=== PATIENT | female | born 1955 | race African-American/Black ===

== ENCOUNTER 2017-04-18 13:31 | Inpatient (IN) | payer OTHER ==
[2017-04-18 15:58] VITALS: BMI 14.6
--- NOTE | 2017-04-18 19:44 | HP ---
CIWA Score - CIWA Score Nausea/Vomitin Muscle Tremors: 5 Anxiety: 4-Mod. Anxious/Guarded Agitation: 4-Moderately Restless Paroxysmal Sweats: 1-Minimal Palms Moist Orientation: 1-Uncertain about Date Tacttile Disturbances: 0-None Auditory Disturbances: 0-None Visual Disturbances: 0-None Headache: 1-Very Mild CIWA-Ar Total Score: 18 Admission ROS BHS - HPI Chief Complaint: WITHDRAWAL SX Allergies/Adverse Reactions: Allergies Allergy/AdvReac Type Severity Reaction Status Date / Time Penicillins Allergy Severe Hives Verified 09/19/16 15:43 History of Present Illness: 61 YEARS OLD FEMALE WITH LONG HISTORY OF ALCOHOL NICOTINE DEPENDENCE, HAS GERD, SEIZURE NEUROPATHY COPE AMBULATE WITH CANE, ALLERGIC SEASONAL AND DEPRESSION IS ADMITTED TO DETOX Exam Limitations: No Limitations - Ebola screening Have you traveled outside of the country in the last 21 days: No Have you had contact with anyone from an Ebola affected area: No Have you been sick,other than usual withdrawal symptoms: No Do you have a fever: No - Review of Systems Constitutional: Chills, Loss of Appetite, Changes in sleep, Unintentional Wgt. Loss, Unexplained wgt Loss EENT: reports: Other (EYE GLASSES) Respiratory: reports: SOB with Exertion, Productive cough (WHITISH) Cardiac: reports: No Symptoms Reported GI: reports: Nausea, Poor Appetite, Poor Fluid Intake, Vomiting, Indigestion, Abdominal cramping : reports: No Symptoms Reported Musculoskeletal: reports: Muscle Weakness (LEGS) Integumentary: reports: No Symptoms Reported Neuro: reports: Seizure, Tremors Endocrine: reports: No Symptoms Reported Hematology: reports: No Symptoms Reported Psychiatric: reports: Judgement Intact, Depressed Other Systems: Reviewed and Negative Patient History - Patient Medical History Hx Anemia: Yes (long time ago, no treatment) Hx Asthma: Yes (Pt is on MDI) Hx Chronic Obstructive Pulmonary Disease (COPD): Yes Hx Cancer: No Hx Cardiac Disorders: No Hx Congestive Heart Failure: No Hx Hypertension: No Hx Hypercholesterolemia: No Hx Pacemaker: No HX Cerebrovascular Accident: No Hx Seizures: Yes (etoh related seizures last in 2013) Hx Dementia: No Hx Diabetes: No Hx Gastrointestinal Disorders: Yes (GERD) Hx Liver Disease: No Hx Genitourinary Disorders: No Hx Sexually Transmitted Disorders: No Hx Renal Disease (ESRD): No Hx Thyroid Disease: No Hx Human Immunodeficiency Virus (HIV): No (NEGATIVE HX) Hx Hepatitis C: No Hx Depression: Yes (ZOLOFT) Hx Suicide Attempt: No Hx Bipolar Disorder: No Hx Schizophrenia: No - Patient Surgical History Past Surgical History: Yes Hx Neurologic Surgery: No Hx Cataract Extraction: No Hx Cardiac Surgery: No Hx Lung Surgery: No Hx Breast Surgery: No Hx Breast Biopsy: No Hx Abdominal Surgery: No Hx Appendectomy: Yes (1972) Hx Cholecystectomy: Yes (long time ago) Hx Genitourinary Surgery: No Hx Section: No Hx Orthopedic Surgery: Yes (Right big toe x 2011) Hx Hysterectomy: No Other Surgical History: Gallbladder removed Anesthesia Reaction: No - PPD History Previous Implant?: Yes Documented Results: Negative w/proof Implanted On Prior [facility] Admission?: Yes Date: 09/21/16 Results: 0 mm PPD to be Administered?: No - Reproductive History Patient is a Female of Child Bearing Age (11 -55 yrs old): No Last Menstrual Period: 08/19/00 Patient : No - Smoking Cessation Smoking history: Current every day smoker Have you smoked in the past 12 months: Yes Aproximately how many cigarettes per day: 20 Cigars Per Day: 0 Hx Chewing Tobacco Use: No Initiated information on smoking cessation: Yes 'Breaking Loose' booklet given: 04/18/17 - Substance & Tx. History Hx Alcohol Use: Yes Hx Substance Use: No Substance Use Type: Alcohol Hx Substance Use Treatment: Yes (09/19-09/23/16 [place]) - Substances Abused Alcohol Route: Oral Frequency: Daily Amount used: [id number] Age of first use: 12 Date of Last Use: 04/18/17 Family Disease History - Family Disease History Family Disease History: Diabetes: Father, Sister, [place]: Mother (brain /alzheimers ) Admission Physical Exam S - Vital Signs Vital Signs: Vital Signs - 24 hr 04/18/17 15:55 Temperature 97.1 F L Pulse Rate 98 H Respiratory 16 Rate Blood Pressure 130/70 - Physical General Appearance: Yes: Appropriately Dressed, Moderate Distress, Alcohol on Breath, Thin, Tremorous, Irritable, Sweating, Anxious HEENTM: Yes: Hearing grossly Normal, Normal ENT Inspection, Normocephalic, Normal Voice Respiratory: Yes: Chest Non-Tender, No Respiratory Distress, No Accessory Muscle Use, Hyperresonant, Inspiration Neck: Yes: Supple, Trachea in good position Breast: Yes: Breasts Symetrical Cardiology: Yes: Regular Rhythm, S1, S2, Tachycardia Abdominal: Yes: Non Tender, Soft Genitourinary: Yes: Within Normal Limits Back: Yes: Normal Inspection Musculoskeletal: Yes: Gait Steady (CANE), Muscle weakness (LEGS) Extremities: Yes: Non-Tender, Tremors, Other (WEAKNESS OF BOTH LEGS) Neurological: Yes: Alert, Normal Response, Depressed Affect Integumentary: Yes: Warm Lymphatic: Yes: Within Normal Limits - Diagnostic (1) Alcohol dependence with uncomplicated withdrawal Current Visit: Yes Status: Acute (2) COPD (chronic obstructive pulmonary disease) Current Visit: Yes Status: Chronic Qualifiers: COPD type: chronic bronchitis Chronic bronchitis type: unspecified Qualified Code(s): J42 - Unspecified chronic bronchitis Comment: . (3) GERD (gastroesophageal reflux disease) Current Visit: Yes Status: Chronic Qualifiers: Esophagitis presence: esophagitis presence not specified Qualified Code (s): K21.9 - Gastro-esophageal reflux disease without esophagitis Comment: . (4) Nicotine dependence Current Visit: Yes Status: Acute Qualifiers: Nicotine product type: cigarettes Substance use status: in withdrawal Qualified Code(s): F17.213 - Nicotine dependence, cigarettes, with withdrawal Comment: . (5) Seizures Current Visit: Yes Status: Chronic Qualifiers: Convulsion type: unspecified Qualified Code(s): R56.9 - Unspecified convulsions Comment: . (6) Neuropathic arthritis Current Visit: Yes Status: Chronic (7) Weight loss Current Visit: Yes Status: Acute (8) Depression Current Visit: Yes Status: Suspected Qualifiers: Depression Type: dysthymia Qualified Code(s): F34.1 - Dysthymic disorder (9) Use of cane as ambulatory aid Current Visit: Yes Status: Chronic Cleared for Admission S - Detox or Rehab [facility] Level of Care: Medically Managed Detox Regimen/Protocol: Librium [facility] Breath Alcohol Content Breath Alcohol Content: 0.204 Urine Pregancy Test - Result Urine Test Results: Negative- NO Line Present Urine Drug Screen - Results Drug Screen Negative: Yes
[2017-04-18] MEDS ORDERED: MAG HYDROX/AL HYDROX/SIMETH 30 ML UNIT-DOSE CUP PO PRN (19:58)
[2017-04-18] MEDS ORDERED: hydrOXYzine PAMOATE 50 MG CAPSULE (FP) PO PRN (19:58)
[2017-04-18] MEDS ORDERED: P-EPHED 60MG/TRIPROLIDI 2.5MG TABLET PO PRN (19:58)
[2017-04-18] MEDS ORDERED: LOPERAMIDE HCL 2 MG CAPSULE PO PRN (19:58)
[2017-04-18] MEDS ORDERED: diphenhydrAMINE HCL 50 MG CAPSULE PO PRN (19:58)
[2017-04-18] MEDS ORDERED: MENTHOL/PHENOL 1 EACH UD MM PRN (19:58)
[2017-04-18] MEDS ORDERED: MAGNESIUM CITRATE 300 ML BOTTLE PO PRN (19:58)
[2017-04-18] MEDS ORDERED: NICOTINE POLACRILEX 4 MG GUM BUC PRN (19:58)
[2017-04-18] MEDS ORDERED: ACETAMINOPHEN 325 MG TABLET (FP) PO PRN (19:58)
[2017-04-18] MEDS ORDERED: chlordiazePOXIDE HCL 25 MG CAPSULE PO ONE (19:58)
[2017-04-18] MEDS ORDERED: chlordiazePOXIDE HCL 25 MG CAPSULE PO PRN (19:58)
[2017-04-18] MEDS ORDERED: MAGNESIUM HYDROX 2400MG/30ML ORAL SUSPENSION 30 ML CUP PO PRN (19:58)
[2017-04-18] MEDS ORDERED: ALBUTEROL SO4 6.7 GM HFA INHALER IH PRN (20:00)
[2017-04-18] MEDS ORDERED: ALBUTEROL SO4 2.5/IPRATROPIUM 0.5 INH SOL 3 ML VIAL.NEB. NEB PRN (20:00)
[2017-04-18] MEDS: levETIRAcetam 500 MG TABLET (FP) PO SCH (21:28)
[2017-04-18] MEDS: GABAPENTIN 100 MG CAPSULE (FP) PO SCH (21:28)
[2017-04-18] MEDS: THIAMINE HCL 100 MG TABLET (FP) PO SCH (21:29)
[2017-04-18] MEDS: BUDESONIDE/FORMETEROL FUMARATE 80/4.5 mcg INHALER IH SCH (21:29)
[2017-04-18] MEDS ORDERED: MONTELUKAST NA 5 MG TAB.CHEW PO SCH (22:00)
[2017-04-18] MEDS: chlordiazePOXIDE HCL 25 MG CAPSULE PO SCH (22:25)
[2017-04-18 23:55] LABS: URINE APPEARANCE CLEAR; URINE BILIRUBIN NEGATIVE (NEGATIVE); URINE BLOOD NEGATIVE (NEGATIVE); URINE COLOR STRAW; URINE GLUCOSE (UA) NEGATIVE (NEGATIVE); URINE KETONE NEGATIVE (NEGATIVE); URINE LEUK ESTERASE NEGATIVE (NEGATIVE); URINE NITRITE NEGATIVE (NEGATIVE); URINE PROTEIN NEGATIVE (NEGATIVE); URINE UROBILINOGEN NEGATIVE E.U./dl (0.2-1.0)
[2017-04-19] MEDS: chlordiazePOXIDE HCL 25 MG CAPSULE PO SCH ×4 (06:45→22:57)
[2017-04-19] MEDS: GABAPENTIN 100 MG CAPSULE (FP) PO SCH ×3 (06:46→22:58)
[2017-04-19] MEDS: guaiFENesin/D-METHORPHAN HB 10 ML UNIT-DOSE CUPS PO PRN (06:50)
--- NOTE | 2017-04-19 09:58 | EKG ---
Test Reason : Blood Pressure : / mmHG Vent. Rate : 091 BPM Atrial Rate : 091 BPM P-R Int : 170 ms QRS Dur : 090 ms QT Int : 388 ms P-R-T Axes : 072 058 073 degrees QTc Int : 477 ms NORMAL SINUS RHYTHM POSSIBLE LEFT ATRIAL ENLARGEMENT SEPTAL INFARCT , AGE UNDETERMINED ABNORMAL ECG NO PREVIOUS ECGS AVAILABLE Confirmed by AMAYA RAM MD ([id number]) on 04/19/2017 9:58:25 AM Referred By: Michael Hawkins Confirmed By:AMAYA RAM MD
[2017-04-19 10:21] LABS: MCH 31.6 pg (25.7-33.7); MCHC 33.9 g/dl (32.0-36.0); MEAN CELL VOLUME 93.3 fl (80-96); MEAN PLT VOLUME 9.3 fl (7.5-11.1); PLATELET COUNT 197 K/MM3 (134-434); RDW 13.4 % (11.6-15.6); WHITE BLOOD COUNT 4.5 K/mm3 (4.0-10.0)
[2017-04-19 10:44] LABS: ALBUMIN 4.2 g/dl (3.4-5.0); ANION GAP 17 (8-16); CALCIUM 9.2 mg/dL (8.5-10.1); CO2 22 mmol/L (21-32); CREATININE 0.6 mg/dL (0.55-1.02); GLUCOSE,RANDOM 86 mg/dL (74-106); SGOT/AST 108 U/L (15-37); SGPT/ALT 45 U/L (12-78)
[2017-04-19 10:46] LABS: ALK PHOS 88 U/L (45-117); BILIRUBIN,TOTAL 0.4 mg/dL (0.2-1.0); TOT PROT 8.5 g/dl (6.4-8.2)
[2017-04-19] MEDS: BUDESONIDE/FORMETEROL FUMARATE 80/4.5 mcg INHALER IH SCH ×2 (10:51→22:58)
[2017-04-19] MEDS: PANTOPRAZOLE 20 MG TABLET (FP) PO SCH (10:51)
[2017-04-19] MEDS: PRENATAL VITAMINS W/ FOLIC ACID TABLET (FP) PO SCH (10:52)
[2017-04-19] MEDS: levETIRAcetam 500 MG TABLET (FP) PO SCH ×2 (10:52→22:57)
[2017-04-19] MEDS: NICOTINE 21 MG/24 HOURS TOPICAL PATCH TD SCH (10:53)
[2017-04-19] MEDS ORDERED: POTASSIUM CHLORIDE TABS 20 MEQ TABLET.ER (FP) PO ONE (15:40)
--- NOTE | 2017-04-19 15:47 | PN ---
S CIWA - CIWA Score Nausea/Vomitin-No Nausea/No Vomiting Muscle Tremors: 4-Moderate,w/Arms Extend Anxiety: 4-Mod. Anxious/Guarded Agitation: 4-Moderately Restless Paroxysmal Sweats: 3 Orientation: 0-Oriented Tacttile Disturbances: 0-None Auditory Disturbances: 0-None Visual Disturbances: 0-None Headache: 0-None Present CIWA-Ar Total Score: 15 BHS Progress Note (SOAP) Subjective: Anxiety,tremors,sweating,interrupted sleep,restless. Objective: 04/19/17 15:46 Vital Signs - 8 hr 04/19/17 04/19/17 10:00 15:26 Temperature 97.9 F 97.9 F Pulse Rate 90 96 H Respiratory 20 18 Rate Blood Pressure 129/73 134/77 Laboratory Tests 04/18/17 04/19/17 04/19/17 21:16 08:00 08:00 WBC 4.5 RBC 3.99 Hgb 12.6 Hct 37.2 MCV 93.3 MCHC 33.9 RDW 13.4 Plt Count 197 D MPV 9.3 Sodium 133 L Potassium 3.3 L Chloride 94 L Carbon Dioxide 22 Anion Gap 17 H BUN 4 L D Creatinine 0.6 Creat Clearance w eGFR > 60 Random Glucose 86 Calcium 9.2 Total Bilirubin 0.4 D AST 108 H ALT 45 D Alkaline Phosphatase 88 Total Protein 8.5 H Albumin 4.2 Urine Color Straw Urine Appearance Clear Urine pH 5.0 Ur Specific [place] < 1.005 L Urine Protein Negative Urine Glucose (UA) Negative Urine Ketones Negative Urine Blood Negative Urine Nitrite Negative Urine Bilirubin Negative Urine Urobilinogen Negative Ur Leukocyte Esterase Negative labs noted,K+ 3.3,k-dur ordered Assessment: 04/19/17 15:47 Withdrawal sx. Plan: Continue detox
--- NOTE | 2017-04-19 15:58 | CONSULT ---
[facility] Psychiatric Consult - Data Date of interview: 04/19/17 Admission source: [facility] Identifying data: Readmission to [facility] for this 61 y/o AA female seeking detox treatment for alcohol dependence.Patient is a ,mother of two, domiciled,unemployed and supported on SSI and 's benefits.. Substance Abuse History: - Smoking Cessation. Smoking history: Current every day smoker. Have you smoked in the past 12 months: Yes. Aproximately how many cigarettes per day: 20. Cigars Per Day: 0. Hx Chewing Tobacco Use: No. Initiated information on smoking cessation: Yes. 'Breaking Loose' booklet given : 04/18/17. - Substance & Tx. History. Hx Alcohol Use: Yes. Hx Substance Use : No. Substance Use Type: Alcohol. Hx Substance Use Treatment: Yes (09/19- [place]). - Substances Abused. Alcohol. Route: Oral. Frequency: Daily. Amount used: [id number]. Age of first use: 12. Date of Last Use: 04/18. Confirmed by patient. Medical History: Significant for weight loss,anemia,COPD,bronchial asthma, spinal stenosis,low back pain,GERD,seizure disorder (on keppra) and a history of cholecystectomy.Noted history of orthosurgery for fracture of right big toe. Psychiatric History: Patient denies history of psychiatric hospitalizations.No OPD care.Ms Crystal is currently prescribed zoloft 25 mg/day by her primary care doctor (started this month).Patient admits to experiencing periods of dyphoric/ depressed mood but she denies suicidal ideation.No history of suicide attempts.Reported decent sleep. Physical/Sexual Abuse/Trauma History: Patient denies history of abuse. Additional Comment: Drug Screen is negative. Mental Status Exam - Mental Status Exam Alert and Oriented to: Time, Place, Person Cognitive Function: Good Patient Appearance: Well Groomed (thin,frail habitus,short stature) Mood: Sad, Withdrawn Affect: Constricted Patient Behavior: Fatigued, Cooperative Speech Pattern: Clear Voice Loudness: Moderately Soft/Quiet Thought Process: Intact, Goal Oriented Thought Disorder: Not Present Hallucinations: Denies Suicidal Ideation: Denies Homicidal Ideation: Denies Insight/Judgement: Poor Sleep: Poorly, Difficulty falling asleep Appetite: Weight loss Muscle strength/Tone: Normal Gait/Station: Other (walks with a cane) Psychiatric Findings - Problem List ([place] 1, 2,3) (1) Alcohol dependence with uncomplicated withdrawal Current Visit: Yes Status: Acute (2) Nicotine dependence Current Visit: Yes Status: Acute Qualifiers: Nicotine product type: cigarettes Substance use status: in withdrawal Qualified Code(s): F17.213 - Nicotine dependence, cigarettes, with withdrawal Comment: . (3) Depressive disorder Current Visit: Yes Status: Chronic (4) Weight loss Current Visit: Yes Status: Chronic (5) COPD (chronic obstructive pulmonary disease) Current Visit: Yes Status: Chronic Qualifiers: COPD type: chronic bronchitis Chronic bronchitis type: unspecified Qualified Code(s): J42 - Unspecified chronic bronchitis Comment: . (6) GERD (gastroesophageal reflux disease) Current Visit: Yes Status: Chronic Qualifiers: Esophagitis presence: esophagitis presence not specified Qualified Code(s): K21.9 - Gastro-esophageal reflux disease without esophagitis Comment: . (7) Neuropathic arthritis Current Visit: Yes Status: Chronic (8) Seizures Current Visit: Yes Status: Chronic Qualifiers: Convulsion type: unspecified Qualified Code(s): R56.9 - Unspecified convulsions Comment: . (9) Anemia Current Visit: Yes Status: Chronic Comment: . (10) Asthma Current Visit: No Status: Chronic Qualifiers: Asthma severity: mild intermittent Asthma complication type: with status asthmaticus Qualified Code(s): J45.22 - Mild intermittent asthma with status asthmaticus Comment: . (11) Cachexia Current Visit: No Status: Chronic - Initial Treatment Plan Initial Treatment Plan: Psychoeducation.Detoxification.Zoloft 25 mg po daily.Side effects/benefits discussed with the patient.She agrees with this careplan.Observation.NO scripts at discharge (issued on 04/06/17 at [facility]).
[2017-04-19] MEDS: POTASSIUM CHLORIDE TABS 20 MEQ TABLET.ER (FP) PO SCH (22:57)
[2017-04-19] MEDS: THIAMINE HCL 100 MG TABLET (FP) PO SCH (22:58)
[2017-04-19] MEDS: MONTELUKAST NA 10 MG TABLET PO SCH (22:58)
[2017-04-20] MEDS: chlordiazePOXIDE HCL 25 MG CAPSULE PO SCH ×3 (06:36→17:29)
[2017-04-20] MEDS: GABAPENTIN 100 MG CAPSULE (FP) PO SCH ×3 (06:36→22:46)
--- NOTE | 2017-04-20 10:21 | PN ---
[facility] CIWA - CIWA Score Nausea/Vomitin-Mild Nausea/No Vomiting Muscle Tremors: 5 Anxiety: 4-Mod. Anxious/Guarded Agitation: 4-Moderately Restless Paroxysmal Sweats: 3 Orientation: 0-Oriented Tacttile Disturbances: 1-Very Mild Itch/Numbness Auditory Disturbances: 0-None Visual Disturbances: 0-None Headache: 0-None Present CIWA-Ar Total Score: 18 BHS Progress Note (SOAP) Subjective: Anxiety,tremors,sweating,interrupted sleep,restless Objective: 04/20/17 10:18 Vital Signs - 8 hr 04/20/17 04/20/17 03:30 06:52 Temperature 97.9 F Pulse Rate 83 Respiratory 18 18 Rate Blood Pressure 141/86 Laboratory Last Values WBC 4.5 K/mm3 (4.0-10.0) 04/19/17 08:00 RBC 3.99 M/mm3 (3.60-5.2) 04/19/17 08:00 Hgb 12.6 GM/dL (10.7-15.3) 04/19/17 08:00 Hct 37.2 % (32.4-45.2) 04/19/17 08:00 MCV 93.3 fl (80-96) 04/19/17 08:00 MCHC 33.9 g/dl (32.0-36.0) 04/19/17 08:00 RDW 13.4 % (11.6-15.6) 04/19/17 08:00 Plt Count 197 K/MM3 (134-434) D 04/19/17 08:00 MPV 9.3 fl (7.5-11.1) 04/19/17 08:00 Sodium 133 mmol/L (136-145) L 04/19/17 08:00 Potassium 3.3 mmol/L (3.5-5.1) L 04/19/17 08:00 Chloride 94 mmol/L (98-107) L 04/19/17 08:00 Carbon Dioxide 22 mmol/L (21-32) 04/19/17 08:00 Anion Gap 17 (8-16) H 04/19/17 08:00 BUN 4 mg/dL (7-18) L D 04/19/17 08:00 Creatinine 0.6 mg/dL (0.55-1.02) 04/19/17 08:00 Creat Clearance w eGFR > 60 (>60) 04/19/17 08:00 Random Glucose 86 mg/dL (74-106) 04/19/17 08:00 Calcium 9.2 mg/dL (8.5-10.1) 04/19/17 08:00 Total Bilirubin 0.4 mg/dL (0.2-1.0) D 04/19/17 08:00 AST 108 U/L (15-37) H 04/19/17 08:00 ALT 45 U/L (12-78) D 04/19/17 08:00 Alkaline Phosphatase 88 U/L (45-117) 04/19/17 08:00 Total Protein 8.5 g/dl (6.4-8.2) H 04/19/17 08:00 Albumin 4.2 g/dl (3.4-5.0) 04/19/17 08:00 Urine Color Straw 04/18/17 21:16 Urine Appearance Clear 04/18/17 21:16 Urine pH 5.0 (5.0-8.0) 04/18/17 21:16 Ur Specific [place] < 1.005 (1.005-1.025) L 04/18/17 21:16 Urine Protein Negative (NEGATIVE) 04/18/17 21:16 Urine Glucose (UA) Negative (NEGATIVE) 04/18/17 21:16 Urine Ketones Negative (NEGATIVE) 04/18/17 21:16 Urine Blood Negative (NEGATIVE) 04/18/17 21:16 Urine Nitrite Negative (NEGATIVE) 04/18/17 21:16 Urine Bilirubin Negative (NEGATIVE) 04/18/17 21:16 Urine Urobilinogen Negative E.U./dl (0.2-1.0) 04/18/17 21:16 Ur Leukocyte Esterase Negative (NEGATIVE) 04/18/17 21:16 labs noted Assessment: 04/20/17 10:21 Withdrawal sx. Plan: continue detox
[2017-04-20] MEDS: PANTOPRAZOLE 20 MG TABLET (FP) PO SCH (10:39)
[2017-04-20] MEDS: NICOTINE 21 MG/24 HOURS TOPICAL PATCH TD SCH (10:39)
[2017-04-20] MEDS: levETIRAcetam 500 MG TABLET (FP) PO SCH ×2 (10:39→22:45)
[2017-04-20] MEDS: PRENATAL VITAMINS W/ FOLIC ACID TABLET (FP) PO SCH (10:39)
[2017-04-20] MEDS: POTASSIUM CHLORIDE TABS 20 MEQ TABLET.ER (FP) PO SCH ×2 (10:39→22:46)
[2017-04-20] MEDS: BUDESONIDE/FORMETEROL FUMARATE 80/4.5 mcg INHALER IH SCH ×2 (10:40→23:07)
[2017-04-20] MEDS: THIAMINE HCL 100 MG TABLET (FP) PO SCH (22:45)
[2017-04-20] MEDS: MONTELUKAST NA 10 MG TABLET PO SCH (22:46)
[2017-04-20] MEDS: chlordiazePOXIDE 5 MG CAPSULE PO SCH (22:47)
[2017-04-20] MEDS: guaiFENesin/D-METHORPHAN HB 10 ML UNIT-DOSE CUPS PO PRN (23:16)
[2017-04-21] MEDS: guaiFENesin/D-METHORPHAN HB 10 ML UNIT-DOSE CUPS PO PRN (05:31)
[2017-04-21] MEDS: chlordiazePOXIDE 5 MG CAPSULE PO SCH ×3 (05:33→17:33)
[2017-04-21] MEDS: GABAPENTIN 100 MG CAPSULE (FP) PO SCH ×3 (07:45→22:43)
[2017-04-21] MEDS: levETIRAcetam 500 MG TABLET (FP) PO SCH ×2 (10:42→22:42)
[2017-04-21] MEDS: PRENATAL VITAMINS W/ FOLIC ACID TABLET (FP) PO SCH (10:42)
[2017-04-21] MEDS: POTASSIUM CHLORIDE TABS 20 MEQ TABLET.ER (FP) PO SCH ×2 (10:42→22:42)
[2017-04-21] MEDS: PANTOPRAZOLE 20 MG TABLET (FP) PO SCH (10:42)
[2017-04-21] MEDS: NICOTINE 21 MG/24 HOURS TOPICAL PATCH TD SCH (10:43)
[2017-04-21] MEDS: BUDESONIDE/FORMETEROL FUMARATE 80/4.5 mcg INHALER IH SCH ×2 (10:43→22:43)
--- NOTE | 2017-04-21 11:07 | PN ---
BHS Progress Note (SOAP) Subjective: interrupted sleep, sweats, shakes Objective: 04/21/17 11:04 Last Vital Signs Temp Pulse Resp BP Pulse Ox 98.2 F 85 16 114/60 04/21/17 06:00 04/21/17 06:00 04/21/17 06:00 04/21/17 06:00 Laboratory Tests 04/18/17 04/19/17 04/19/17 21:16 08:00 08:00 WBC 4.5 RBC 3.99 Hgb 12.6 Hct 37.2 MCV 93.3 MCHC 33.9 RDW 13.4 Plt Count 197 D MPV 9.3 Sodium 133 L Potassium 3.3 L Chloride 94 L Carbon Dioxide 22 Anion Gap 17 H BUN 4 L D Creatinine 0.6 Creat Clearance w eGFR > 60 Random Glucose 86 Calcium 9.2 Total Bilirubin 0.4 D AST 108 H ALT 45 D Alkaline Phosphatase 88 Total Protein 8.5 H Albumin 4.2 Urine Color Straw Urine Appearance Clear Urine pH 5.0 Ur Specific [place] < 1.005 L Urine Protein Negative Urine Glucose (UA) Negative Urine Ketones Negative Urine Blood Negative Urine Nitrite Negative Urine Bilirubin Negative Urine Urobilinogen Negative Ur Leukocyte Esterase Negative RPR Titer 04/19/17 08:00 WBC RBC Hgb Hct MCV MCHC RDW Plt Count MPV Sodium Potassium Chloride Carbon Dioxide Anion Gap BUN Creatinine Creat Clearance w eGFR Random Glucose Calcium Total Bilirubin AST ALT Alkaline Phosphatase Total Protein Albumin Urine Color Urine Appearance Urine pH Ur Specific [place] Urine Protein Urine Glucose (UA) Urine Ketones Urine Blood Urine Nitrite Urine Bilirubin Urine Urobilinogen Ur Leukocyte Esterase RPR Titer Nonreactive pt aox3 in nad ambualting not using cane at present , very thin Assessment: 04/21/17 11:05 withdrawal sx;s elevated transaminases hypokalemia 04/21/17 11:06 Plan: cont. detox increase fluids ensure tid d/c in am
[2017-04-21] MEDS: chlordiazePOXIDE HCL 10 MG CAPSULE PO SCH (22:43)
[2017-04-21] MEDS: MONTELUKAST NA 10 MG TABLET PO SCH (22:43)
[2017-04-21] MEDS: THIAMINE HCL 100 MG TABLET (FP) PO SCH (22:44)
[2017-04-22] MEDS: chlordiazePOXIDE HCL 10 MG CAPSULE PO SCH ×2 (06:01→10:36)
[2017-04-22] MEDS: GABAPENTIN 100 MG CAPSULE (FP) PO SCH (07:00)
--- NOTE | 2017-04-22 09:03 | DS ---
[facility] Detox Discharge Summary Admission Date: 04/18/17 Discharge Date: 04/22/17 - History Present History: Alcohol Dependence - Physical Exam Results Vital Signs: Vital Signs Temperature 97.5 F L 04/22/17 06:30 Pulse Rate 89 04/22/17 06:30 Respiratory Rate 16 04/22/17 06:30 Blood Pressure 116/73 04/22/17 06:30 O2 Sat by Pulse Oximetry (%) - Treatment Hospital Course: Detox Protocol Followed, Detoxed Safely, Responded well, Discharged Condition Good - Medication Discharge Medications: Ambulatory Orders Multivitamins [Multivit ([facility] Formulary)] 1 tab PO DAILY 02/22/15 Albuterol Sulfate Inhaler - [Ventolin HFA Inhaler -] 2 inh PO Q4H PRN #1 canister 12/29/15 Budesonide/Formeterol Fumarate [SYMBICORT 80/4.5mcg -] 1 inh PO BID #1 canister 12/29/15 Folic Acid - 1 mg PO DAILY #30 tablet 12/29/15 Montelukast Na [Singulair -] 10 mg PO HS #30 tablet 12/29/15 Thiamine HCl [Vitamin B1 -] 100 mg PO HS #30 tablet 12/29/15 Levetiracetam [Keppra -] 750 mg PO DAILY 09/19/16 Omeprazole 20 mg PO DAILY 09/19/16 Albuterol Sulfate Inhaler - [Ventolin HFA Inhaler -] 2 puff IH Q4H PRN #1 inhaler 04/22/17 Budesonide/Formeterol Fumarate [SYMBICORT 80/4.5mcg -] 2 puff IH BID #1 inhaler 04/22/17 Gabapentin [Neurontin -] 200 mg PO TID #90 mg 04/22/17 Levetiracetam [Keppra -] 1,000 mg PO BID #60 tablet 04/22/17 Montelukast Na [Singulair -] 10 mg PO HS #30 tablet 04/22/17 Pantoprazole Sodium [Protonix -] 40 mg PO DAILY #30 mg 04/22/17 - Diagnosis (1) Alcohol dependence with uncomplicated withdrawal Current Visit: Yes Status: Chronic (2) Nicotine dependence Current Visit: Yes Status: Chronic Qualifiers: Nicotine product type: cigarettes Substance use status: in withdrawal Qualified Code(s): F17.213 - Nicotine dependence, cigarettes, with withdrawal (3) Anemia Current Visit: Yes Status: Chronic (4) COPD (chronic obstructive pulmonary disease) Current Visit: Yes Status: Chronic Qualifiers: COPD type: chronic bronchitis Chronic bronchitis type: unspecified Qualified Code(s): J42 - Unspecified chronic bronchitis (5) Depressive disorder Current Visit: Yes Status: Chronic (6) GERD (gastroesophageal reflux disease) Current Visit: Yes Status: Chronic Qualifiers: Esophagitis presence: esophagitis presence not specified Qualified Code(s): K21.9 - Gastro-esophageal reflux disease without esophagitis (7) Neuropathic arthritis Current Visit: Yes Status: Acute - AMA Did Patient Leave Against Medical Advice: No
[2017-04-22 09:39] VITALS: BP 128/80; PULSE 91; TEMP 97.9
[2017-04-22] MEDS ORDERED: PANTOPRAZOLE 40 MG TABLET (FP) PO SCH (10:00)
[2017-04-22] MEDS: NICOTINE 21 MG/24 HOURS TOPICAL PATCH TD SCH (10:36)
[2017-04-22] MEDS: POTASSIUM CHLORIDE TABS 20 MEQ TABLET.ER (FP) PO SCH (10:36)
[2017-04-22] MEDS: PRENATAL VITAMINS W/ FOLIC ACID TABLET (FP) PO SCH (10:36)
[2017-04-22] MEDS: levETIRAcetam 500 MG TABLET (FP) PO SCH (10:36)
[2017-04-22] MEDS: BUDESONIDE/FORMETEROL FUMARATE 80/4.5 mcg INHALER IH SCH (10:37)
== END 2017-04-22 12:15 | disposition other institution (70) | DRG 897 ==
LOC: YASAS 13:31 → UNDOADMIN 20:49 → Y6N 20:49 → UNDODISIN 04-22 12:15
PROVIDERS: ADMIT Internal Medicine; ATTEND Internal Medicine
PROC: HZ2ZZZZ Detoxification Services for Substance Abuse Treatment (ICD-10-PCS; principal; 2017-04-18)
DX: F10.230 Alcohol dependence with withdrawal, uncomplicated (principal); J45.22 Mild intermittent asthma with status asthmaticus; R64 Cachexia; F17.210 Nicotine dependence, cigarettes, uncomplicated; F32.9 Major depressive disorder, single episode, unspecified; J42 Unspecified chronic bronchitis; K21.9 Gastro-esophageal reflux disease without esophagitis; R00.0 Tachycardia, unspecified; M14.60 Charcot's joint, unspecified site; R74.0 Nonspecific elevation of levels of transaminase and lactic acid dehydrogenase [LDH]; E87.6 Hypokalemia; G40.909 Epilepsy, unspecified, not intractable, without status epilepticus; Z87.898 Personal history of other specified conditions; Z90.49 Acquired absence of other specified parts of digestive tract; R26.2 Difficulty in walking, not elsewhere classified; Z99.89 Dependence on other enabling machines and devices
CPT/HCPCS: 36415; 80053; 81003; 85027; 86593; 93005; 93010

== ENCOUNTER 2017-04-22 12:34 | Inpatient (IN) | payer OTHER ==
[2017-04-22] MEDS ORDERED: NICOTINE POLACRILEX 2 MG GUM BUC PRN (15:10)
[2017-04-22] MEDS ORDERED: MENTHOL/PHENOL 1 EACH UD MM PRN (15:10)
[2017-04-22] MEDS ORDERED: P-EPHED 60MG/TRIPROLIDI 2.5MG TABLET PO PRN (15:10)
[2017-04-22] MEDS ORDERED: MAGNESIUM CITRATE 300 ML BOTTLE PO PRN (15:10)
[2017-04-22] MEDS ORDERED: LOPERAMIDE HCL 2 MG CAPSULE PO PRN (15:10)
[2017-04-22] MEDS ORDERED: MAGNESIUM HYDROX 2400MG/30ML ORAL SUSPENSION 30 ML CUP PO PRN (15:10)
--- NOTE | 2017-04-22 15:12 | HP ---
RENAE SMITH Rehab Assess/Revision - Admission History Admitted to Rehab from: [facility] [place] Date of Admission to Rehab: 04/22/17 - Vital signs Vital Signs: Vital Signs Period Temp Pulse Resp BP Sys/Ackerman Pulse Ox Last 24 Hr 97.8 F 84 16 146/80 - Findings Detox History & Physical reviewed: Yes Concur with findings: Yes
[2017-04-22] MEDS ORDERED: ALBUTEROL SO4 6.7 GM HFA INHALER IH PRN (15:25)
[2017-04-22] MEDS ORDERED: ALBUTEROL SO4 2.5/IPRATROPIUM 0.5 INH SOL 3 ML VIAL.NEB. NEB PRN (15:25)
[2017-04-22] MEDS: MAG HYDROX/AL HYDROX/SIMETH 30 ML UNIT-DOSE CUP PO PRN (16:50)
[2017-04-22] MEDS: BUDESONIDE/FORMETEROL FUMARATE 80/4.5 mcg INHALER IH SCH (21:35)
[2017-04-22] MEDS: levETIRAcetam 500 MG TABLET (FP) PO SCH (21:35)
[2017-04-22] MEDS: THIAMINE HCL 100 MG TABLET (FP) PO SCH (21:36)
[2017-04-22] MEDS: diphenhydrAMINE HCL 50 MG CAPSULE PO PRN (21:36)
[2017-04-22] MEDS: MONTELUKAST NA 10 MG TABLET PO SCH (21:36)
[2017-04-23] MEDS: levETIRAcetam 500 MG TABLET (FP) PO SCH ×2 (09:34→21:12)
[2017-04-23] MEDS: PANTOPRAZOLE 40 MG TABLET (FP) PO SCH (09:34)
[2017-04-23] MEDS: NICOTINE 14 MG/24 HOURS TOPICAL PATCH TD SCH (09:34)
[2017-04-23] MEDS: PRENATAL VITAMINS W/ FOLIC ACID TABLET (FP) PO SCH (09:34)
[2017-04-23] MEDS ORDERED: PT OWN MED DRAWER 7, Y5N ONE (09:35)
[2017-04-23] MEDS: BUDESONIDE/FORMETEROL FUMARATE 80/4.5 mcg INHALER IH SCH ×2 (09:36→21:13)
[2017-04-23] MEDS: guaiFENesin/D-METHORPHAN HB 10 ML UNIT-DOSE CUPS PO PRN (09:36)
--- NOTE | 2017-04-23 09:53 | HP ---
Psychiatrist Admission - Data Date of interview: 04/23/17 Admission source: [address] [place] [address] Identifying data: This is the second admission to [facility] for this 61 years old AA mother of 2,domiciled,supported by [facility]. Medical History: Significant for Anemia,BA,COPD,Seizure disorder,Cahexia. Psychiatric History: Patient denies history of psychiatric hospitalizations, reports periods of dysphoric,depressed mood.No history of suicidality.No psychiatric follow up,care.According to the patient her Family Doctor prescribes Zoloft 25 mg po daily.Patient is willing to continue Zoloft 25 mg po daily at this time. Physical/Sexual Abuse/Trauma History: denies Vital Signs: Vital Signs - 24 hr 04/22/17 04/23/17 04/23/17 12:55 01:21 03:30 Temperature 97.8 F Pulse Rate 84 Respiratory 16 18 18 Rate Blood Pressure 146/80 04/23/17 07:08 Temperature 98.0 F Pulse Rate 89 Respiratory 18 Rate Blood Pressure 127/80 Allergies/Adverse Reactions: Allergies Allergy/AdvReac Type Severity Reaction Status Date / Time Penicillins Allergy Severe Hives Verified 04/18/17 20:54 Date of last physical exam: 04/18/17 Concur with the findings of this exam: Yes - Substance Abuse/Tx History Hx Alcohol Use: Yes (reports drinking since 12 yo,4-5 22 oz of beer) Hx Substance Use: No Substance Use Type: Alcohol Hx Substance Use Treatment: Yes (completed this program in 2014) - Admission Criteria Previous failed treatment: Yes Poor recovery environment: Yes Comorbidities: Yes Lacks judgement: Yes Mental Status Exam - Mental Status Exam Alert and Oriented to: Time, Place, Person Cognitive Function: Grossly Intact Patient Appearance: Well Groomed Mood: Sad Affect: Mood Congruent, Labile Patient Behavior: Cooperative Speech Pattern: Clear Voice Loudness: Normal Thought Process: Goal Oriented Thought Disorder: Not Present Hallucinations: Denies Suicidal Ideation: Denies Homicidal Ideation: Denies Insight/Judgement: Fair Sleep: Fair Appetite: Fair, Weight loss Muscle strength/Tone: Normal Gait/Station: Normal Psychiatric Findings - Problem List ([place] 1, 2,3) (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 (5) Asthma Current Visit: Yes Status: Chronic Qualifiers: Comment: . (6) COPD (chronic obstructive pulmonary disease) Current Visit: Yes Status: Chronic Comment: . (7) Cachexia Current Visit: Yes Status: Chronic - Initial Treatment Plan Initial Treatment Plan: Continue Zoloft 25 mg po daily.Will monitor progress.
[2017-04-23] MEDS: SERTRALINE HCL 25 MG TABLET (FP) PO SCH (14:49)
[2017-04-23] MEDS: THIAMINE HCL 100 MG TABLET (FP) PO SCH (21:12)
[2017-04-23] MEDS: MONTELUKAST NA 10 MG TABLET PO SCH (21:12)
[2017-04-24] MEDS: NICOTINE 14 MG/24 HOURS TOPICAL PATCH TD SCH (09:51)
[2017-04-24] MEDS: levETIRAcetam 500 MG TABLET (FP) PO SCH ×2 (09:51→21:11)
[2017-04-24] MEDS: PRENATAL VITAMINS W/ FOLIC ACID TABLET (FP) PO SCH (09:51)
[2017-04-24] MEDS: PANTOPRAZOLE 40 MG TABLET (FP) PO SCH (09:51)
[2017-04-24] MEDS: SERTRALINE HCL 25 MG TABLET (FP) PO SCH (09:52)
[2017-04-24] MEDS: BUDESONIDE/FORMETEROL FUMARATE 80/4.5 mcg INHALER IH SCH ×2 (09:53→21:12)
[2017-04-24] MEDS: THIAMINE HCL 100 MG TABLET (FP) PO SCH (21:11)
[2017-04-24] MEDS: MONTELUKAST NA 10 MG TABLET PO SCH (21:11)
[2017-04-25] MEDS: BUDESONIDE/FORMETEROL FUMARATE 80/4.5 mcg INHALER IH SCH ×2 (09:59→21:26)
[2017-04-25] MEDS: PANTOPRAZOLE 40 MG TABLET (FP) PO SCH (10:00)
[2017-04-25] MEDS: PRENATAL VITAMINS W/ FOLIC ACID TABLET (FP) PO SCH (10:00)
[2017-04-25] MEDS: levETIRAcetam 500 MG TABLET (FP) PO SCH ×2 (10:00→21:27)
[2017-04-25] MEDS: NICOTINE 14 MG/24 HOURS TOPICAL PATCH TD SCH (10:00)
[2017-04-25] MEDS: SERTRALINE HCL 25 MG TABLET (FP) PO SCH (10:00)
[2017-04-25] MEDS ORDERED: PT OWN MED DRAWER 7, Y5N ONE (19:20)
[2017-04-25] MEDS: MONTELUKAST NA 10 MG TABLET PO SCH (21:27)
[2017-04-25] MEDS: diphenhydrAMINE HCL 50 MG CAPSULE PO PRN (21:28)
[2017-04-25] MEDS: guaiFENesin/D-METHORPHAN HB 10 ML UNIT-DOSE CUPS PO PRN (21:29)
[2017-04-25] MEDS: THIAMINE HCL 100 MG TABLET (FP) PO SCH (21:34)
[2017-04-26] MEDS ORDERED: PT OWN MED DRAWER 7, Y5N ONE ×3 (09:18→22:22)
[2017-04-26] MEDS: PRENATAL VITAMINS W/ FOLIC ACID TABLET (FP) PO SCH (09:35)
[2017-04-26] MEDS: PANTOPRAZOLE 40 MG TABLET (FP) PO SCH (09:35)
[2017-04-26] MEDS: BUDESONIDE/FORMETEROL FUMARATE 80/4.5 mcg INHALER IH SCH ×2 (09:36→21:16)
[2017-04-26] MEDS: NICOTINE 14 MG/24 HOURS TOPICAL PATCH TD SCH (09:36)
[2017-04-26] MEDS: SERTRALINE HCL 25 MG TABLET (FP) PO SCH (09:36)
--- NOTE | 2017-04-26 10:01 | PN ---
S Progress Note Note: KEPPRA LEVEL IS 45.5,CHANGE KEPPRA TO 500 MGS PO BID,REPAET KEPPRA LEVEL ON Fri04/28/17
[2017-04-26] MEDS: levETIRAcetam 500 MG TABLET (FP) PO SCH ×2 (10:51→21:15)
[2017-04-26] MEDS: MONTELUKAST NA 10 MG TABLET PO SCH (21:15)
[2017-04-26] MEDS: diphenhydrAMINE HCL 50 MG CAPSULE PO PRN (21:15)
[2017-04-26] MEDS: THIAMINE HCL 100 MG TABLET (FP) PO SCH (21:17)
[2017-04-26] MEDS: guaiFENesin/D-METHORPHAN HB 10 ML UNIT-DOSE CUPS PO PRN (21:17)
[2017-04-27] MEDS ORDERED: PT OWN MED DRAWER 7, Y5N ONE ×2 (08:37→12:53)
[2017-04-27] MEDS: PRENATAL VITAMINS W/ FOLIC ACID TABLET (FP) PO SCH (09:39)
[2017-04-27] MEDS: PANTOPRAZOLE 40 MG TABLET (FP) PO SCH (09:39)
[2017-04-27] MEDS: SERTRALINE HCL 25 MG TABLET (FP) PO SCH (09:39)
[2017-04-27] MEDS: levETIRAcetam 500 MG TABLET (FP) PO SCH ×2 (09:39→21:15)
[2017-04-27] MEDS: NICOTINE 14 MG/24 HOURS TOPICAL PATCH TD SCH (09:40)
[2017-04-27] MEDS: BUDESONIDE/FORMETEROL FUMARATE 80/4.5 mcg INHALER IH SCH ×2 (09:40→21:16)
[2017-04-27] MEDS ORDERED: ALBUTEROL SO4 2.5/IPRATROPIUM 0.5 INH SOL 3 ML VIAL.NEB. NEB PRN (09:41)
[2017-04-27] MEDS: MONTELUKAST NA 10 MG TABLET PO SCH (21:15)
[2017-04-27] MEDS: diphenhydrAMINE HCL 50 MG CAPSULE PO PRN (21:15)
[2017-04-27] MEDS: THIAMINE HCL 100 MG TABLET (FP) PO SCH (21:15)
[2017-04-27] MEDS ORDERED: INSULIN (NOVOLOG) ASPART 100 UNITS/ML 10ML VIAL ONE (21:59)
[2017-04-28] MEDS: PRENATAL VITAMINS W/ FOLIC ACID TABLET (FP) PO SCH (09:54)
[2017-04-28] MEDS: NICOTINE 14 MG/24 HOURS TOPICAL PATCH TD SCH (09:55)
[2017-04-28] MEDS: levETIRAcetam 500 MG TABLET (FP) PO SCH ×2 (09:55→21:15)
[2017-04-28] MEDS: PANTOPRAZOLE 40 MG TABLET (FP) PO SCH (09:55)
[2017-04-28] MEDS: SERTRALINE HCL 25 MG TABLET (FP) PO SCH (09:55)
[2017-04-28] MEDS: BUDESONIDE/FORMETEROL FUMARATE 80/4.5 mcg INHALER IH SCH ×2 (09:55→21:16)
[2017-04-28] MEDS: diphenhydrAMINE HCL 50 MG CAPSULE PO PRN (21:15)
[2017-04-28] MEDS: THIAMINE HCL 100 MG TABLET (FP) PO SCH (21:15)
[2017-04-28] MEDS: MONTELUKAST NA 10 MG TABLET PO SCH (21:15)
[2017-04-29] MEDS ORDERED: PT OWN MED DRAWER 7, Y5N ONE ×4 (08:18→21:46)
[2017-04-29] MEDS: NICOTINE 14 MG/24 HOURS TOPICAL PATCH TD SCH (10:14)
[2017-04-29] MEDS: PANTOPRAZOLE 40 MG TABLET (FP) PO SCH (10:15)
[2017-04-29] MEDS: levETIRAcetam 500 MG TABLET (FP) PO SCH ×2 (10:15→21:09)
[2017-04-29] MEDS: PRENATAL VITAMINS W/ FOLIC ACID TABLET (FP) PO SCH (10:15)
[2017-04-29] MEDS: SERTRALINE HCL 25 MG TABLET (FP) PO SCH (10:15)
[2017-04-29] MEDS: BUDESONIDE/FORMETEROL FUMARATE 80/4.5 mcg INHALER IH SCH ×2 (10:16→21:09)
[2017-04-29] MEDS: diphenhydrAMINE HCL 50 MG CAPSULE PO PRN (21:10)
[2017-04-29] MEDS: MONTELUKAST NA 10 MG TABLET PO SCH (21:10)
[2017-04-29] MEDS: THIAMINE HCL 100 MG TABLET (FP) PO SCH (21:10)
[2017-04-30] MEDS ORDERED: PT OWN MED DRAWER 7, Y5N ONE ×3 (08:29→21:12)
[2017-04-30] MEDS: SERTRALINE HCL 25 MG TABLET (FP) PO SCH (10:00)
[2017-04-30] MEDS: PANTOPRAZOLE 40 MG TABLET (FP) PO SCH (10:00)
[2017-04-30] MEDS: PRENATAL VITAMINS W/ FOLIC ACID TABLET (FP) PO SCH (10:00)
[2017-04-30] MEDS: levETIRAcetam 500 MG TABLET (FP) PO SCH ×2 (10:00→21:13)
[2017-04-30] MEDS: NICOTINE 14 MG/24 HOURS TOPICAL PATCH TD SCH (10:01)
[2017-04-30] MEDS: BUDESONIDE/FORMETEROL FUMARATE 80/4.5 mcg INHALER IH SCH ×2 (10:01→21:12)
[2017-04-30] MEDS: MONTELUKAST NA 10 MG TABLET PO SCH (21:13)
[2017-04-30] MEDS: THIAMINE HCL 100 MG TABLET (FP) PO SCH (21:13)
[2017-04-30] MEDS: diphenhydrAMINE HCL 50 MG CAPSULE PO PRN (21:13)
[2017-05-01] MEDS: levETIRAcetam 500 MG TABLET (FP) PO SCH ×2 (09:04→21:14)
[2017-05-01] MEDS: SERTRALINE HCL 25 MG TABLET (FP) PO SCH (09:04)
[2017-05-01] MEDS: PANTOPRAZOLE 40 MG TABLET (FP) PO SCH (09:04)
[2017-05-01] MEDS: hydrOXYzine PAMOATE 50 MG CAPSULE (FP) PO PRN ×2 (09:04→21:15)
[2017-05-01] MEDS: PRENATAL VITAMINS W/ FOLIC ACID TABLET (FP) PO SCH (09:04)
[2017-05-01] MEDS: NICOTINE 14 MG/24 HOURS TOPICAL PATCH TD SCH (09:04)
[2017-05-01] MEDS: BUDESONIDE/FORMETEROL FUMARATE 80/4.5 mcg INHALER IH SCH ×2 (09:05→21:15)
[2017-05-01] MEDS ORDERED: PT OWN MED DRAWER 7, Y5N ONE ×2 (13:56→20:00)
[2017-05-01] MEDS: AMMONIUM LACTATE 12% LOTION 225 GM BOTTLE TP PRN (20:01)
[2017-05-01] MEDS: THIAMINE HCL 100 MG TABLET (FP) PO SCH (21:14)
[2017-05-01] MEDS: MONTELUKAST NA 10 MG TABLET PO SCH (21:14)
[2017-05-01] MEDS: diphenhydrAMINE HCL 50 MG CAPSULE PO PRN (21:14)
[2017-05-02] MEDS: NICOTINE 14 MG/24 HOURS TOPICAL PATCH TD SCH (10:09)
[2017-05-02] MEDS: PANTOPRAZOLE 40 MG TABLET (FP) PO SCH (10:09)
[2017-05-02] MEDS: PRENATAL VITAMINS W/ FOLIC ACID TABLET (FP) PO SCH (10:09)
[2017-05-02] MEDS: levETIRAcetam 500 MG TABLET (FP) PO SCH ×2 (10:09→21:23)
[2017-05-02] MEDS: SERTRALINE HCL 25 MG TABLET (FP) PO SCH (10:10)
[2017-05-02] MEDS: BUDESONIDE/FORMETEROL FUMARATE 80/4.5 mcg INHALER IH SCH ×2 (10:10→21:25)
[2017-05-02] MEDS: hydrOXYzine PAMOATE 50 MG CAPSULE (FP) PO PRN ×2 (10:11→21:24)
[2017-05-02] MEDS ORDERED: PT OWN MED DRAWER 7, Y5N ONE ×2 (10:12→21:26)
[2017-05-02] MEDS: MONTELUKAST NA 10 MG TABLET PO SCH (21:23)
[2017-05-02] MEDS: THIAMINE HCL 100 MG TABLET (FP) PO SCH (21:23)
[2017-05-02] MEDS: MAG HYDROX/AL HYDROX/SIMETH 30 ML UNIT-DOSE CUP PO PRN (22:18)
[2017-05-03] MEDS ORDERED: PT OWN MED DRAWER 7, Y5N ONE ×5 (08:20→19:49)
[2017-05-03] MEDS: levETIRAcetam 500 MG TABLET (FP) PO SCH ×2 (09:48→21:10)
[2017-05-03] MEDS: BUDESONIDE/FORMETEROL FUMARATE 80/4.5 mcg INHALER IH SCH ×2 (09:48→21:10)
[2017-05-03] MEDS: SERTRALINE HCL 25 MG TABLET (FP) PO SCH (09:48)
[2017-05-03] MEDS: PRENATAL VITAMINS W/ FOLIC ACID TABLET (FP) PO SCH (09:48)
[2017-05-03] MEDS: PANTOPRAZOLE 40 MG TABLET (FP) PO SCH (09:48)
[2017-05-03] MEDS: NICOTINE 14 MG/24 HOURS TOPICAL PATCH TD SCH (09:48)
[2017-05-03] MEDS: hydrOXYzine PAMOATE 50 MG CAPSULE (FP) PO PRN (16:32)
[2017-05-03] MEDS: MONTELUKAST NA 10 MG TABLET PO SCH (21:10)
[2017-05-03] MEDS: diphenhydrAMINE HCL 50 MG CAPSULE PO PRN (21:10)
[2017-05-03] MEDS: THIAMINE HCL 100 MG TABLET (FP) PO SCH (21:11)
[2017-05-03] MEDS: IBUPROFEN 400 MG TABLET (FP) PO PRN (22:42)
[2017-05-04] MEDS: hydrOXYzine PAMOATE 50 MG CAPSULE (FP) PO PRN ×3 (06:11→21:20)
[2017-05-04] MEDS ORDERED: PT OWN MED DRAWER 7, Y5N ONE ×2 (08:39→21:27)
[2017-05-04] MEDS: BUDESONIDE/FORMETEROL FUMARATE 80/4.5 mcg INHALER IH SCH ×2 (10:10→21:20)
[2017-05-04] MEDS: levETIRAcetam 500 MG TABLET (FP) PO SCH ×2 (10:11→21:20)
[2017-05-04] MEDS: PANTOPRAZOLE 40 MG TABLET (FP) PO SCH (10:11)
[2017-05-04] MEDS: SERTRALINE HCL 25 MG TABLET (FP) PO SCH (10:11)
[2017-05-04] MEDS: PRENATAL VITAMINS W/ FOLIC ACID TABLET (FP) PO SCH (10:11)
[2017-05-04] MEDS: NICOTINE 14 MG/24 HOURS TOPICAL PATCH TD SCH (10:11)
[2017-05-04] MEDS: THIAMINE HCL 100 MG TABLET (FP) PO SCH (21:20)
[2017-05-04] MEDS: MONTELUKAST NA 10 MG TABLET PO SCH (21:20)
[2017-05-04] MEDS: AMMONIUM LACTATE 12% LOTION 225 GM BOTTLE TP PRN (21:25)
[2017-05-05] MEDS ORDERED: cloNIDine HCL 0.1 MG TABLET PO ONE (07:09)
[2017-05-05] MEDS: PANTOPRAZOLE 40 MG TABLET (FP) PO SCH (10:05)
[2017-05-05] MEDS: levETIRAcetam 500 MG TABLET (FP) PO SCH ×2 (10:06→21:30)
[2017-05-05] MEDS: PRENATAL VITAMINS W/ FOLIC ACID TABLET (FP) PO SCH (10:06)
[2017-05-05] MEDS: BUDESONIDE/FORMETEROL FUMARATE 80/4.5 mcg INHALER IH SCH ×2 (10:06→21:31)
[2017-05-05] MEDS: NICOTINE 14 MG/24 HOURS TOPICAL PATCH TD SCH (10:06)
[2017-05-05] MEDS: IBUPROFEN 400 MG TABLET (FP) PO PRN (10:07)
[2017-05-05] MEDS: SERTRALINE HCL 25 MG TABLET (FP) PO SCH (10:08)
[2017-05-05] MEDS ORDERED: PT OWN MED DRAWER 7, Y5N ONE (21:10)
[2017-05-05] MEDS: THIAMINE HCL 100 MG TABLET (FP) PO SCH (21:30)
[2017-05-05] MEDS: MONTELUKAST NA 10 MG TABLET PO SCH (21:30)
[2017-05-05] MEDS: diphenhydrAMINE HCL 50 MG CAPSULE PO PRN (21:30)
[2017-05-05] MEDS: ACETAMINOPHEN 325 MG TABLET (FP) PO PRN (21:31)
[2017-05-06] MEDS ORDERED: PT OWN MED DRAWER 7, Y5N ONE ×3 (08:20→19:15)
[2017-05-06] MEDS: levETIRAcetam 500 MG TABLET (FP) PO SCH ×2 (09:31→21:02)
[2017-05-06] MEDS: SERTRALINE HCL 25 MG TABLET (FP) PO SCH (09:32)
[2017-05-06] MEDS: NICOTINE 14 MG/24 HOURS TOPICAL PATCH TD SCH (09:32)
[2017-05-06] MEDS: PRENATAL VITAMINS W/ FOLIC ACID TABLET (FP) PO SCH (09:32)
[2017-05-06] MEDS: PANTOPRAZOLE 40 MG TABLET (FP) PO SCH (09:32)
[2017-05-06] MEDS: BUDESONIDE/FORMETEROL FUMARATE 80/4.5 mcg INHALER IH SCH ×2 (09:32→21:02)
[2017-05-06] MEDS: hydrOXYzine PAMOATE 50 MG CAPSULE (FP) PO PRN (09:33)
[2017-05-06] MEDS: amLODIPine BESYLATE 5 MG TABLET (FP) PO SCH (13:24)
[2017-05-06] MEDS: MAG HYDROX/AL HYDROX/SIMETH 30 ML UNIT-DOSE CUP PO PRN (20:14)
[2017-05-06] MEDS: MONTELUKAST NA 10 MG TABLET PO SCH (21:02)
[2017-05-06] MEDS: THIAMINE HCL 100 MG TABLET (FP) PO SCH (21:02)
[2017-05-06] MEDS: ACETAMINOPHEN 325 MG TABLET (FP) PO PRN (21:04)
[2017-05-06] MEDS: diphenhydrAMINE HCL 50 MG CAPSULE PO PRN (21:05)
[2017-05-07] MEDS ORDERED: PT OWN MED DRAWER 7, Y5N ONE ×3 (08:33→19:26)
[2017-05-07] MEDS: NICOTINE 14 MG/24 HOURS TOPICAL PATCH TD SCH (09:30)
[2017-05-07] MEDS: amLODIPine BESYLATE 5 MG TABLET (FP) PO SCH (09:30)
[2017-05-07] MEDS: levETIRAcetam 500 MG TABLET (FP) PO SCH ×2 (09:30→21:15)
[2017-05-07] MEDS: BUDESONIDE/FORMETEROL FUMARATE 80/4.5 mcg INHALER IH SCH ×2 (09:31→21:15)
[2017-05-07] MEDS: PANTOPRAZOLE 40 MG TABLET (FP) PO SCH (09:31)
[2017-05-07] MEDS: PRENATAL VITAMINS W/ FOLIC ACID TABLET (FP) PO SCH (09:31)
[2017-05-07] MEDS: SERTRALINE HCL 25 MG TABLET (FP) PO SCH (09:31)
[2017-05-07] MEDS: hydrOXYzine PAMOATE 50 MG CAPSULE (FP) PO PRN (09:32)
[2017-05-07] MEDS: MONTELUKAST NA 10 MG TABLET PO SCH (21:15)
[2017-05-07] MEDS: THIAMINE HCL 100 MG TABLET (FP) PO SCH (21:15)
[2017-05-07] MEDS: diphenhydrAMINE HCL 50 MG CAPSULE PO PRN (21:16)
[2017-05-07] MEDS: IBUPROFEN 400 MG TABLET (FP) PO PRN (21:17)
[2017-05-08] MEDS: hydrOXYzine PAMOATE 50 MG CAPSULE (FP) PO PRN (06:33)
[2017-05-08] MEDS ORDERED: PT OWN MED DRAWER 7, Y5N ONE ×3 (08:10→20:19)
[2017-05-08] MEDS: PRENATAL VITAMINS W/ FOLIC ACID TABLET (FP) PO SCH (09:36)
[2017-05-08] MEDS: NICOTINE 14 MG/24 HOURS TOPICAL PATCH TD SCH (09:36)
[2017-05-08] MEDS: levETIRAcetam 500 MG TABLET (FP) PO SCH ×2 (09:36→21:12)
[2017-05-08] MEDS: PANTOPRAZOLE 40 MG TABLET (FP) PO SCH (09:36)
[2017-05-08] MEDS: amLODIPine BESYLATE 5 MG TABLET (FP) PO SCH (09:37)
[2017-05-08] MEDS: SERTRALINE HCL 25 MG TABLET (FP) PO SCH (09:37)
[2017-05-08] MEDS: BUDESONIDE/FORMETEROL FUMARATE 80/4.5 mcg INHALER IH SCH ×2 (09:37→21:11)
[2017-05-08] MEDS: IBUPROFEN 400 MG TABLET (FP) PO PRN (16:23)
[2017-05-08] MEDS: diphenhydrAMINE HCL 50 MG CAPSULE PO PRN (21:12)
[2017-05-08] MEDS: THIAMINE HCL 100 MG TABLET (FP) PO SCH (21:12)
[2017-05-08] MEDS: MONTELUKAST NA 10 MG TABLET PO SCH (21:12)
[2017-05-08] MEDS: ACETAMINOPHEN 325 MG TABLET (FP) PO PRN (22:38)
[2017-05-09] MEDS ORDERED: cloNIDine HCL 0.1 MG TABLET PO ONE (03:26)
[2017-05-09] MEDS ORDERED: cloNIDine HCL 0.1 MG TABLET ONE (03:33)
[2017-05-09] MEDS: IBUPROFEN 400 MG TABLET (FP) PO PRN (03:34)
[2017-05-09] MEDS: hydrOXYzine PAMOATE 50 MG CAPSULE (FP) PO PRN (07:11)
[2017-05-09] MEDS: BUDESONIDE/FORMETEROL FUMARATE 80/4.5 mcg INHALER IH SCH ×2 (09:26→21:24)
[2017-05-09] MEDS: PRENATAL VITAMINS W/ FOLIC ACID TABLET (FP) PO SCH (09:26)
[2017-05-09] MEDS: PANTOPRAZOLE 40 MG TABLET (FP) PO SCH (09:26)
[2017-05-09] MEDS: levETIRAcetam 500 MG TABLET (FP) PO SCH ×2 (09:27→21:24)
[2017-05-09] MEDS: SERTRALINE HCL 25 MG TABLET (FP) PO SCH (09:27)
[2017-05-09] MEDS: amLODIPine BESYLATE 5 MG TABLET (FP) PO SCH (09:27)
[2017-05-09] MEDS: AMMONIUM LACTATE 12% LOTION 225 GM BOTTLE TP PRN (09:27)
[2017-05-09] MEDS: NICOTINE 14 MG/24 HOURS TOPICAL PATCH TD SCH (09:28)
[2017-05-09] MEDS ORDERED: PT OWN MED DRAWER 7, Y5N ONE (19:59)
[2017-05-09] MEDS: ACETAMINOPHEN 325 MG TABLET (FP) PO PRN (21:24)
[2017-05-09] MEDS: THIAMINE HCL 100 MG TABLET (FP) PO SCH (21:24)
[2017-05-09] MEDS: MONTELUKAST NA 10 MG TABLET PO SCH (21:24)
[2017-05-09] MEDS: diphenhydrAMINE HCL 50 MG CAPSULE PO PRN (21:25)
[2017-05-10] MEDS ORDERED: PT OWN MED DRAWER 7, Y5N ONE (08:42)
[2017-05-10] MEDS: levETIRAcetam 500 MG TABLET (FP) PO SCH ×2 (09:30→21:29)
[2017-05-10] MEDS: amLODIPine BESYLATE 5 MG TABLET (FP) PO SCH (09:41)
[2017-05-10] MEDS: PRENATAL VITAMINS W/ FOLIC ACID TABLET (FP) PO SCH (09:41)
[2017-05-10] MEDS: PANTOPRAZOLE 40 MG TABLET (FP) PO SCH (09:41)
[2017-05-10] MEDS: NICOTINE 14 MG/24 HOURS TOPICAL PATCH TD SCH (09:42)
[2017-05-10] MEDS: AMMONIUM LACTATE 12% LOTION 225 GM BOTTLE TP PRN (09:42)
[2017-05-10] MEDS: SERTRALINE HCL 25 MG TABLET (FP) PO SCH (09:42)
[2017-05-10] MEDS: BUDESONIDE/FORMETEROL FUMARATE 80/4.5 mcg INHALER IH SCH ×2 (09:44→21:34)
[2017-05-10] MEDS: hydrOXYzine PAMOATE 50 MG CAPSULE (FP) PO PRN (09:45)
[2017-05-10] MEDS: MONTELUKAST NA 10 MG TABLET PO SCH (21:28)
[2017-05-10] MEDS: THIAMINE HCL 100 MG TABLET (FP) PO SCH (21:28)
[2017-05-10] MEDS: diphenhydrAMINE HCL 50 MG CAPSULE PO PRN (21:28)
[2017-05-11] MEDS: hydrOXYzine PAMOATE 50 MG CAPSULE (FP) PO PRN ×2 (06:35→11:14)
[2017-05-11] MEDS ORDERED: PT OWN MED DRAWER 7, Y5N ONE ×2 (08:44→15:51)
[2017-05-11] MEDS: levETIRAcetam 500 MG TABLET (FP) PO SCH ×2 (09:32→21:14)
[2017-05-11] MEDS: PRENATAL VITAMINS W/ FOLIC ACID TABLET (FP) PO SCH (09:32)
[2017-05-11] MEDS: PANTOPRAZOLE 40 MG TABLET (FP) PO SCH (09:32)
[2017-05-11] MEDS: amLODIPine BESYLATE 5 MG TABLET (FP) PO SCH (09:33)
[2017-05-11] MEDS: BUDESONIDE/FORMETEROL FUMARATE 80/4.5 mcg INHALER IH SCH ×2 (09:33→21:14)
[2017-05-11] MEDS: SERTRALINE HCL 25 MG TABLET (FP) PO SCH (09:33)
[2017-05-11] MEDS: NICOTINE 14 MG/24 HOURS TOPICAL PATCH TD SCH (11:37)
[2017-05-11] MEDS: MONTELUKAST NA 10 MG TABLET PO SCH (21:14)
[2017-05-11] MEDS: diphenhydrAMINE HCL 50 MG CAPSULE PO PRN (21:14)
[2017-05-11] MEDS: THIAMINE HCL 100 MG TABLET (FP) PO SCH (21:14)
[2017-05-11] MEDS: ACETAMINOPHEN 325 MG TABLET (FP) PO PRN (22:31)
[2017-05-11] MEDS: guaiFENesin/D-METHORPHAN HB 10 ML UNIT-DOSE CUPS PO PRN (22:31)
[2017-05-12 07:14] VITALS: TEMP 98.1
[2017-05-12] MEDS ORDERED: PT OWN MED DRAWER 7, Y5N ONE ×3 (08:14→21:23)
[2017-05-12] MEDS: BUDESONIDE/FORMETEROL FUMARATE 80/4.5 mcg INHALER IH SCH ×2 (09:31→21:17)
[2017-05-12] MEDS: NICOTINE 14 MG/24 HOURS TOPICAL PATCH TD SCH (09:31)
[2017-05-12] MEDS: PRENATAL VITAMINS W/ FOLIC ACID TABLET (FP) PO SCH (09:31)
[2017-05-12] MEDS: amLODIPine BESYLATE 5 MG TABLET (FP) PO SCH (09:31)
[2017-05-12] MEDS: PANTOPRAZOLE 40 MG TABLET (FP) PO SCH (09:31)
[2017-05-12] MEDS: levETIRAcetam 500 MG TABLET (FP) PO SCH ×2 (09:31→21:16)
[2017-05-12] MEDS: SERTRALINE HCL 25 MG TABLET (FP) PO SCH (09:32)
[2017-05-12] MEDS: hydrOXYzine PAMOATE 50 MG CAPSULE (FP) PO PRN ×2 (09:33→17:01)
--- NOTE | 2017-05-12 10:19 | PN ---
Psychiatric Progress Note Vital Signs: Vital Signs Period Temp Pulse Resp BP Sys/Ackerman Pulse Ox Last 24 Hr 98.1 F 87-91 16-18 117-149/74-77 Date of Session: 05/12/17 Chief Complaint:: discharge visit HPI: Farzad addressed Alcohol dependence comorbid with Alcohol induced mood disorder. ROS: Significant for HTN,Seizure disorder,GERD,COPD,Anemia,Chronic arthritis with Neuropathy. Current Medications: Active Medications Generic Name Dose Route Start Last Admin Trade Name Freq PRN Reason Stop Dose Admin Acetaminophen 650 mg 04/22/17 15:10 05/11/17 22:31 Tylenol - PO 650 mg Q4H PRN Administration FEVER OR PAIN Al Hydroxide/Mg Hydroxide 30 ml 04/22/17 15:10 05/06/17 20:14 Mylanta Oral Suspension - PO 30 ml Q6H PRN Administration DYSPEPSIA Albuterol Sulfate 2 puff 04/22/17 15:25 Ventolin Hfa Inhaler - IH Q4H PRN SHORT OF BREATH/WHEEZING Amlodipine Besylate 5 mg 05/06/17 13:15 05/12/17 09:31 Norvasc - PO 5 mg DAILY WALDEMAR Administration Budesonide/Formoterol Fumarate 2 puff 04/22/17 22:00 05/12/17 09:31 Symbicort 80/4.5mcg - IH 2 inhaler BID WALDEMAR Administration Diphenhydramine HCl 50 mg 04/22/17 15:10 05/11/17 21:14 Benadryl - PO 50 mg HSMR1 PRN Administration FOR ITCHING Eucalyptus/Menthol/Phenol/Sorbitol 1 each 04/22/17 15:10 Cepastat Lozenge - MM Q4H PRN SORE THROAT Guaifenesin 10 ml 04/22/17 15:10 05/11/17 22:31 Robitussin Dm - PO 10 ml Q6H PRN Administration COUGH Hydroxyzine Pamoate 50 mg 04/23/17 14:26 05/12/17 09:33 Vistaril - PO 50 mg Q4H PRN Administration ANXIETY Ibuprofen 400 mg 04/22/17 15:10 05/09/17 03:34 Motrin - PO 400 mg Q6H PRN Administration PAIN Lactic Acid 1 applic 05/01/17 14:57 05/10/17 09:42 Lac-Hydrin 12 TP 1 applic BID PRN Administration DRY SKIN Levetiracetam 500 mg 04/26/17 10:00 05/12/17 09:31 Keppra - PO 500 mg BID WALDEMAR Administration Loperamide HCl 4 mg 04/22/17 15:10 04/28/17 09:55 Imodium - PO 4 mg Q6H PRN Administration DIARRHEA Magnesium Hydroxide 30 ml 04/22/17 15:10 Milk Of Magnesia - PO DAILY PRN CONSTIPATION Montelukast Sodium 10 mg 04/22/17 22:00 05/11/17 21:14 Singulair - PO 10 mg HS WALDEMAR Administration Nicotine 14 mg 04/23/17 10:00 05/12/17 09:31 Nicoderm Patch - TD Not Given DAILY WALDEMAR Nicotine Polacrilex 2 mg 04/22/17 15:10 Nicorette Gum - BUC Q2H PRN NICOTINE REPLACEMENT RX Pantoprazole Sodium 40 mg 04/23/17 10:00 05/12/17 09:31 Protonix - PO 40 mg DAILY WALDEMAR Administration Multivit/Folic Acid/Iron 1 tab 04/23/17 10:00 05/12/17 09:31 Vitamins (Sjr) - PO 1 tab DAILY WALDEMAR Administration Pseudoephedrine/Triprolidine 1 combo 04/22/17 15:10 Actifed - PO TID PRN NASAL CONGESTION Sertraline HCl 25 mg 04/23/17 14:30 05/12/17 09:32 Zoloft - PO 25 mg DAILY WALDEMAR Administration Thiamine HCl 100 mg 04/22/17 22:00 05/11/17 21:14 Vitamin B1 - PO 100 mg HS WALDEMAR Administration Current Side Effect: No Lab tests ordered: No Lab tests reviewed: Yes Provider note:: The patient will complete this program tomorrow 05/13/17.She has met her treatment goals and will continue to address her issues on outpatient basis at [facility] in the [place].Patient will continue Zoloft 25 mg po daily to control her depressed mood and anxiety, Scripts for 30 days supply of the above medication provided. Therapy provided focusing on relapase prevention including coping skills,support system utilization to maintain recovery. Patient is stable for discharge tomorrow 09/19. Total face to face time:: 35 Mental Status Exam - Mental Status Exam Alert and Oriented to: Time, Place, Person Cognitive Function: Grossly Intact Patient Appearance: Well Groomed Mood: Euthymic Affect: Mood Congruent, Euthymic Patient Behavior: Cooperative Speech Pattern: Clear Voice Loudness: Normal Thought Process: Goal Oriented Thought Disorder: Not Present Hallucinations: Denies Suicidal Ideation: Denies Homicidal Ideation: Denies Insight/Judgement: Fair Sleep: Fair Appetite: Fair Muscle strength/Tone: Normal Gait/Station: Normal Psychiatric Treatment Plan - Problem List (4) Anemia Comment: . (5) Asthma Qualifiers: Comment: . (6) COPD (chronic obstructive pulmonary disease) Comment: .
[2017-05-12] MEDS: MONTELUKAST NA 10 MG TABLET PO SCH (21:17)
[2017-05-12] MEDS: THIAMINE HCL 100 MG TABLET (FP) PO SCH (21:17)
[2017-05-12] MEDS: diphenhydrAMINE HCL 50 MG CAPSULE PO PRN (21:17)
[2017-05-13] MEDS ORDERED: PT OWN MED DRAWER 7, Y5N ONE (08:07)
[2017-05-13 09:07] VITALS: BP 123/71; PULSE 94
[2017-05-13] MEDS: levETIRAcetam 500 MG TABLET (FP) PO SCH (09:18)
[2017-05-13] MEDS: PANTOPRAZOLE 40 MG TABLET (FP) PO SCH (09:18)
[2017-05-13] MEDS: amLODIPine BESYLATE 5 MG TABLET (FP) PO SCH (09:18)
[2017-05-13] MEDS: PRENATAL VITAMINS W/ FOLIC ACID TABLET (FP) PO SCH (09:18)
[2017-05-13] MEDS: SERTRALINE HCL 25 MG TABLET (FP) PO SCH (09:19)
[2017-05-13] MEDS: hydrOXYzine PAMOATE 50 MG CAPSULE (FP) PO PRN ×2 (09:20→09:21)
[2017-05-13] MEDS: BUDESONIDE/FORMETEROL FUMARATE 80/4.5 mcg INHALER IH SCH (09:22)
[2017-05-13] MEDS: NICOTINE 14 MG/24 HOURS TOPICAL PATCH TD SCH (09:34)
== END 2017-05-13 09:35 | disposition home or self-care (01) | DRG 895 ==
LOC: YASAS 12:34 → Y3E 12:35
PROVIDERS: ADMIT Psychiatry & Neurology Psychiatry; ATTEND Psychiatry & Neurology Psychiatry
PROC: HZ42ZZZ Group Counseling for Substance Abuse Treatment, Cognitive-Behavioral (ICD-10-PCS; principal; 2017-05-13)
DX: F10.20 Alcohol dependence, uncomplicated (principal); R64 Cachexia; F10.282 Alcohol dependence with alcohol-induced sleep disorder; F10.24 Alcohol dependence with alcohol-induced mood disorder; J44.9 Chronic obstructive pulmonary disease, unspecified; M14.60 Charcot's joint, unspecified site; D64.9 Anemia, unspecified
CPT/HCPCS: 36415; 84132

== ENCOUNTER 2021-09-24 10:22 | Inpatient (IN) | payer OTHER ==
[2021-09-24 11:06] VITALS: BMI 18.6
[2021-09-24] MEDS ORDERED: IBUPROFEN 400 MG TABLET (FP) PO PRN (11:34)
[2021-09-24] MEDS ORDERED: MAGNESIUM HYDROX 2400MG/30ML ORAL SUSPENSION 30 ML CUP PO PRN (11:34)
[2021-09-24] MEDS ORDERED: ACETAMINOPHEN 325 MG TABLET (FP) PO PRN ×2 (11:34)
[2021-09-24] MEDS ORDERED: NICOTINE 10 MG CARTRIDGE (INHALER) IH PRN (11:34)
[2021-09-24] MEDS ORDERED: MAGNESIUM CITRATE 300 ML BOTTLE PO PRN (11:34)
[2021-09-24] MEDS ORDERED: MENTHOL/PHENOL 1 EACH UD MM PRN (11:34)
[2021-09-24] MEDS ORDERED: ONDANSETRON *ODT* 4 MG TABLET SL PRN (11:34)
[2021-09-24] MEDS ORDERED: MAG HYDROX/AL HYDROX/SIMETH 30 ML UNIT-DOSE CUP PO PRN (11:34)
[2021-09-24] MEDS ORDERED: diazePAM 5 MG TABLET PO PRN (11:34)
[2021-09-24] MEDS ORDERED: BISMUTH SUBSALICYLATE 262 MG/15 ML BTL PO PRN (11:34)
[2021-09-24] MEDS ORDERED: ALBUTEROL SO4 HFA INHALER IH PRN (12:46)
[2021-09-24] MEDS: diazePAM 5 MG TABLET PO SCH ×3 (12:56→22:30)
[2021-09-24] MEDS: METHOCARBAMOL 500 MG TABLET PO PRN (12:57)
[2021-09-24] MEDS: PRENATAL VITAMINS W/ FOLIC ACID TABLET (FP) PO SCH (12:58)
[2021-09-24] MEDS: NICOTINE 14 MG/24 HOURS TOPICAL PATCH TD SCH (12:58)
[2021-09-24] MEDS: GABAPENTIN 100 MG CAPSULE PO SCH ×2 (13:54→22:28)
[2021-09-24 14:48] LABS: ALBUMIN 3.7 g/dl (3.4-5.0); BLOOD UREA NITROGEN 4.9 mg/dL (7-18)
[2021-09-24 14:51] LABS: CREATININE 0.7 mg/dL (0.55-1.3)
[2021-09-24 14:52] LABS: HEMATOCRIT 35.4 % (32.4-45.2); MCH 30.8 pg (25.7-33.7); MCHC 33.8 g/dl (32.0-36.0); MEAN CELL VOLUME 91.1 fl (80-96); PLATELET COUNT 225 10^3/uL (134-434); RBC 3.89 M/mm3 (3.60-5.2); RDW 13.7 % (11.6-15.6); WHITE BLOOD COUNT 4.8 K/mm3 (4.0-10.0)
[2021-09-24 14:53] LABS: BILIRUBIN,TOTAL 0.5 mg/dL (0.2-1); TOT PROT 8.4 g/dl (6.4-8.2)
[2021-09-24] MEDS ORDERED: MELATONIN 5 MG TABLETS PO SCH (22:00)
[2021-09-24] MEDS: BUDESONIDE/FORMETEROL FUMARATE 80/4.5 mcg INHALER IH SCH (22:26)
[2021-09-24] MEDS: levETIRAcetam 250 MG TABLET PO SCH (22:27)
[2021-09-24] MEDS: MONTELUKAST NA 10 MG TABLET PO SCH (22:27)
[2021-09-24] MEDS: THIAMINE HCL 100 MG TABLET (FP) PO SCH (22:28)
[2021-09-24] MEDS: ATORVASTATIN CA 40 MG TABLET (FP) PO SCH (22:28)
[2021-09-24] MEDS: hydrOXYzine PAMOATE 25 MG CAPSULE (FP) PO PRN (22:29)
[2021-09-24] MEDS: LATANOPROST 0.005% OPHTH SOLN 2.5ML BOTTLE OS SCH (22:32)
[2021-09-25] MEDS: diazePAM 5 MG TABLET PO SCH ×4 (06:34→22:38)
[2021-09-25] MEDS: GABAPENTIN 100 MG CAPSULE PO SCH ×3 (06:35→22:30)
[2021-09-25] MEDS ORDERED: amLODIPine BESYLATE 5 MG TABLET (FP) PO SCH (10:00)
[2021-09-25] MEDS: BUDESONIDE/FORMETEROL FUMARATE 80/4.5 mcg INHALER IH SCH ×2 (10:26→22:31)
[2021-09-25] MEDS: PRENATAL VITAMINS W/ FOLIC ACID TABLET (FP) PO SCH (10:26)
[2021-09-25] MEDS: levETIRAcetam 250 MG TABLET PO SCH ×2 (10:26→22:28)
[2021-09-25] MEDS: hydrOXYzine PAMOATE 25 MG CAPSULE (FP) PO PRN (10:27)
[2021-09-25] MEDS: METHOCARBAMOL 500 MG TABLET PO PRN (10:27)
[2021-09-25] MEDS: SERTRALINE HCL 50 MG TABLET (FP) PO SCH (10:27)
[2021-09-25] MEDS: ASPIRIN 81 MG CHEWABLE TABLETS PO SCH (10:27)
[2021-09-25] MEDS: NICOTINE 14 MG/24 HOURS TOPICAL PATCH TD SCH (10:28)
[2021-09-25] MEDS: TIOTROPIUM BROMIDE 2.5 MCG (SPIRIVA) RESPIMAT INHALER IH SCH (12:51)
[2021-09-25] MEDS: FAMOTIDINE 20 MG TABLET PO SCH ×2 (13:57→22:29)
[2021-09-25] MEDS: MELATONIN 5 MG TABLETS PO SCH (22:29)
[2021-09-25] MEDS: ATORVASTATIN CA 40 MG TABLET (FP) PO SCH (22:29)
[2021-09-25] MEDS: THIAMINE HCL 100 MG TABLET (FP) PO SCH (22:29)
[2021-09-25] MEDS: MONTELUKAST NA 10 MG TABLET PO SCH (22:29)
[2021-09-25] MEDS: diazePAM 5 MG TABLET PO ONE (22:34)
[2021-09-25] MEDS: LATANOPROST 0.005% OPHTH SOLN 2.5ML BOTTLE OS SCH (22:34)
[2021-09-26] MEDS: diazePAM 5 MG TABLET PO SCH ×3 (06:01→22:20)
[2021-09-26] MEDS: hydrOXYzine PAMOATE 25 MG CAPSULE (FP) PO PRN (06:01)
[2021-09-26] MEDS: GABAPENTIN 100 MG CAPSULE PO SCH ×3 (06:02→22:20)
[2021-09-26] MEDS: SERTRALINE HCL 50 MG TABLET (FP) PO SCH (10:00)
[2021-09-26] MEDS: PRENATAL VITAMINS W/ FOLIC ACID TABLET (FP) PO SCH (10:46)
[2021-09-26] MEDS: FAMOTIDINE 20 MG TABLET PO SCH ×2 (10:47→22:20)
[2021-09-26] MEDS: ASPIRIN 81 MG CHEWABLE TABLETS PO SCH (10:47)
[2021-09-26] MEDS: levETIRAcetam 250 MG TABLET PO SCH ×2 (10:47→22:20)
[2021-09-26] MEDS: NICOTINE 14 MG/24 HOURS TOPICAL PATCH TD SCH (10:49)
[2021-09-26] MEDS: BUDESONIDE/FORMETEROL FUMARATE 80/4.5 mcg INHALER IH SCH ×2 (10:52→22:23)
[2021-09-26] MEDS: TIOTROPIUM BROMIDE 2.5 MCG (SPIRIVA) RESPIMAT INHALER IH SCH (10:52)
[2021-09-26] MEDS: THIAMINE HCL 100 MG TABLET (FP) PO SCH (22:20)
[2021-09-26] MEDS: ATORVASTATIN CA 40 MG TABLET (FP) PO SCH (22:20)
[2021-09-26] MEDS: MONTELUKAST NA 10 MG TABLET PO SCH (22:22)
[2021-09-26] MEDS: ZINC OXIDE/PANTHENOL/VITAMIN E 56 GM TUBE TP SCH (22:23)
[2021-09-26] MEDS: MELATONIN 5 MG TABLETS PO SCH (22:23)
[2021-09-26] MEDS: LATANOPROST 0.005% OPHTH SOLN 2.5ML BOTTLE OS SCH (22:24)
[2021-09-27] MEDS: diazePAM 5 MG TABLET PO SCH ×2 (05:59→17:47)
[2021-09-27] MEDS: GABAPENTIN 100 MG CAPSULE PO SCH ×3 (05:59→22:25)
[2021-09-27] MEDS: BUDESONIDE/FORMETEROL FUMARATE 80/4.5 mcg INHALER IH SCH ×2 (10:34→22:26)
[2021-09-27] MEDS: PRENATAL VITAMINS W/ FOLIC ACID TABLET (FP) PO SCH (10:35)
[2021-09-27] MEDS: SERTRALINE HCL 50 MG TABLET (FP) PO SCH (10:35)
[2021-09-27] MEDS: FAMOTIDINE 20 MG TABLET PO SCH ×2 (10:35→22:26)
[2021-09-27] MEDS: levETIRAcetam 250 MG TABLET PO SCH ×2 (10:35→22:26)
[2021-09-27] MEDS: METHOCARBAMOL 500 MG TABLET PO PRN (10:35)
[2021-09-27] MEDS: ASPIRIN 81 MG CHEWABLE TABLETS PO SCH (10:35)
[2021-09-27] MEDS: hydrOXYzine PAMOATE 25 MG CAPSULE (FP) PO PRN (10:35)
[2021-09-27] MEDS: TIOTROPIUM BROMIDE 2.5 MCG (SPIRIVA) RESPIMAT INHALER IH SCH (10:36)
[2021-09-27] MEDS: NICOTINE 14 MG/24 HOURS TOPICAL PATCH TD SCH (10:38)
[2021-09-27] MEDS: ZINC OXIDE/PANTHENOL/VITAMIN E 56 GM TUBE TP SCH (10:38)
[2021-09-27] MEDS: MONTELUKAST NA 10 MG TABLET PO SCH (22:25)
[2021-09-27] MEDS: ATORVASTATIN CA 40 MG TABLET (FP) PO SCH (22:25)
[2021-09-27] MEDS: MELATONIN 5 MG TABLETS PO SCH (22:25)
[2021-09-27] MEDS: THIAMINE HCL 100 MG TABLET (FP) PO SCH (22:25)
[2021-09-27] MEDS: LATANOPROST 0.005% OPHTH SOLN 2.5ML BOTTLE OS SCH (22:26)
[2021-09-28] MEDS: GABAPENTIN 100 MG CAPSULE PO SCH (05:33)
[2021-09-28] MEDS: diazePAM 5 MG TABLET PO ONE (05:33)
[2021-09-28 05:53] VITALS: BP 125/62; PULSE 74; TEMP 98.3
[2021-09-28] MEDS: ASPIRIN 81 MG CHEWABLE TABLETS PO SCH (09:45)
[2021-09-28] MEDS: levETIRAcetam 250 MG TABLET PO SCH (09:45)
[2021-09-28] MEDS: PRENATAL VITAMINS W/ FOLIC ACID TABLET (FP) PO SCH (09:45)
[2021-09-28] MEDS: SERTRALINE HCL 50 MG TABLET (FP) PO SCH (09:45)
[2021-09-28] MEDS: BUDESONIDE/FORMETEROL FUMARATE 80/4.5 mcg INHALER IH SCH (09:46)
[2021-09-28] MEDS: hydrOXYzine PAMOATE 25 MG CAPSULE (FP) PO PRN (09:46)
== END 2021-09-28 10:15 | disposition home or self-care (01) | DRG 897 ==
LOC: YASAS 10:22 → Y6N 11:29
PROVIDERS: ADMIT Allergy & Immunology; ATTEND Allergy & Immunology
PROC: HZ2ZZZZ Detoxification Services for Substance Abuse Treatment (ICD-10-PCS; principal; 2021-09-24)
DX: F10.230 Alcohol dependence with withdrawal, uncomplicated (principal); F17.213 Nicotine dependence, cigarettes, with withdrawal; F10.280 Alcohol dependence with alcohol-induced anxiety disorder; F10.282 Alcohol dependence with alcohol-induced sleep disorder; E78.5 Hyperlipidemia, unspecified; G40.909 Epilepsy, unspecified, not intractable, without status epilepticus; H40.9 Unspecified glaucoma; I10 Essential (primary) hypertension; J44.9 Chronic obstructive pulmonary disease, unspecified; K21.9 Gastro-esophageal reflux disease without esophagitis; Z85.118 Personal history of other malignant neoplasm of bronchus and lung; Z86.2 Personal history of diseases of the blood and blood-forming organs and certain disorders involving the immune mechanism; Z88.0 Allergy status to penicillin
CPT/HCPCS: 36415; 80053; 80177; 85027; 86780; 93005; 93010; C9803; U0003; U0005

== ENCOUNTER 2022-02-25 14:58 | Inpatient (IN) | payer OTHER ==
[2022-02-25 15:32] VITALS: BMI 18.1
[2022-02-25] MEDS ORDERED: ALBUTEROL SO4 HFA INHALER IH PRN (16:58)
[2022-02-25] MEDS ORDERED: ONDANSETRON *ODT* 4 MG TABLET SL PRN (17:00)
[2022-02-25] MEDS ORDERED: DICYCLOMINE HCL 10 MG CAPSULE PO PRN (17:00)
[2022-02-25] MEDS ORDERED: IBUPROFEN 400 MG TABLET (FP) PO PRN (17:00)
[2022-02-25] MEDS ORDERED: BENZOCAINE/MENTHOL (CHLORASEPTIC ) LOZENGE MM PRN (17:00)
[2022-02-25] MEDS ORDERED: ACETAMINOPHEN 325 MG TABLET (FP) PO PRN ×2 (17:00)
[2022-02-25] MEDS ORDERED: BISMUTH SUBSALICYLATE 524 MG/30 ML PO PRN (17:00)
[2022-02-25] MEDS ORDERED: LOPERAMIDE HCL 2 MG CAPSULE PO PRN (17:00)
[2022-02-25] MEDS ORDERED: MAGNESIUM HYDROX 2400MG/30ML ORAL SUSPENSION 30 ML CUP PO PRN (17:00)
[2022-02-25] MEDS ORDERED: MAGNESIUM CITRATE 300 ML BOTTLE PO PRN (17:00)
[2022-02-25] MEDS ORDERED: MAG HYDROX/AL HYDROX/SIMETH 30 ML UNIT-DOSE CUP PO PRN (17:00)
[2022-02-25] MEDS ORDERED: NICOTINE 10 MG CARTRIDGE (INHALER) IH PRN (17:02)
[2022-02-25] MEDS ORDERED: diazePAM 5 MG TABLET PO PRN (17:03)
[2022-02-25] MEDS: hydrOXYzine PAMOATE 25 MG CAPSULE (FP) PO PRN (18:41)
[2022-02-25] MEDS: diazePAM 5 MG TABLET PO SCH ×2 (18:42→22:24)
[2022-02-25] MEDS: THIAMINE HCL 100 MG TABLET (FP) PO SCH (22:24)
[2022-02-25] MEDS: GABAPENTIN 100 MG CAPSULE PO SCH (22:25)
[2022-02-25] MEDS: levETIRAcetam 250 MG TABLET PO SCH (22:25)
[2022-02-25] MEDS: LATANOPROST 0.005% OPHTH SOLN 2.5ML BOTTLE OS SCH (23:27)
[2022-02-25] MEDS: BUDESONIDE/FORMETEROL FUMARATE 80/4.5 mcg INHALER IH SCH (23:27)
[2022-02-26] MEDS: diazePAM 5 MG TABLET PO SCH ×4 (05:23→22:28)
[2022-02-26] MEDS: GABAPENTIN 100 MG CAPSULE PO SCH ×3 (05:23→22:28)
[2022-02-26] MEDS: levETIRAcetam 250 MG TABLET PO SCH ×2 (10:18→22:28)
[2022-02-26] MEDS: ASPIRIN 81 MG CHEWABLE TABLETS PO SCH (10:18)
[2022-02-26] MEDS: BUDESONIDE/FORMETEROL FUMARATE 80/4.5 mcg INHALER IH SCH (10:19)
[2022-02-26] MEDS: PRENATAL VITAMINS W/ FOLIC ACID TABLET (FP) PO SCH (10:19)
[2022-02-26] MEDS: NICOTINE 14 MG/24 HOURS TOPICAL PATCH TD SCH (10:19)
[2022-02-26] MEDS: TIOTROPIUM BROMIDE 2.5 MCG (SPIRIVA) RESPIMAT INHALER IH SCH (10:19)
[2022-02-26] MEDS: SERTRALINE HCL 50 MG TABLET (FP) PO SCH (11:01)
[2022-02-26] MEDS: FOLIC ACID 1 MG TABLET (FP) PO SCH (11:01)
[2022-02-26 12:47] LABS: HEMATOCRIT 34.9 % (32.4-45.2); HEMOGLOBIN 11.5 GM/dL (10.7-15.3); MCH 29.3 pg (25.7-33.7); MEAN CELL VOLUME 88.5 fl (80-96); MEAN PLT VOLUME 8.4 fl (7.5-11.1); PLATELET COUNT 364 10^3/uL (134-434); RBC 3.94 M/mm3 (3.60-5.2); WHITE BLOOD COUNT 5.2 K/mm3 (4.0-10.0)
[2022-02-26 12:51] LABS: ALBUMIN 3.2 g/dl (3.4-5.0); BLOOD UREA NITROGEN 7.5 mg/dL (7-18); CALCIUM 9.2 mg/dL (8.5-10.1)
[2022-02-26 12:54] LABS: CREATININE 0.6 mg/dL (0.55-1.3)
[2022-02-26 12:57] LABS: BILIRUBIN,TOTAL 0.4 mg/dL (0.2-1); TOT PROT 7.7 g/dl (6.4-8.2)
[2022-02-26] MEDS: hydrOXYzine PAMOATE 25 MG CAPSULE (FP) PO PRN ×2 (18:15→22:30)
[2022-02-26] MEDS ORDERED: guaiFENesin 200 MG/10 ML 10 ML UNIT-DOSE CUPS PO PRN (18:19)
[2022-02-26] MEDS: MELATONIN 5 MG TABLETS PO PRN (22:28)
[2022-02-26] MEDS: THIAMINE HCL 100 MG TABLET (FP) PO SCH (22:28)
[2022-02-27] MEDS: LATANOPROST 0.005% OPHTH SOLN 2.5ML BOTTLE OS SCH ×2 (00:09→22:35)
[2022-02-27] MEDS: BUDESONIDE/FORMETEROL FUMARATE 80/4.5 mcg INHALER IH SCH ×3 (00:09→22:31)
[2022-02-27] MEDS: diazePAM 5 MG TABLET PO SCH ×3 (06:43→22:31)
[2022-02-27] MEDS: GABAPENTIN 100 MG CAPSULE PO SCH ×3 (06:43→22:30)
[2022-02-27] MEDS: SERTRALINE HCL 50 MG TABLET (FP) PO SCH (10:20)
[2022-02-27] MEDS: ASPIRIN 81 MG CHEWABLE TABLETS PO SCH (10:20)
[2022-02-27] MEDS: FOLIC ACID 1 MG TABLET (FP) PO SCH (10:21)
[2022-02-27] MEDS: levETIRAcetam 250 MG TABLET PO SCH ×2 (10:21→22:31)
[2022-02-27] MEDS: TIOTROPIUM BROMIDE 2.5 MCG (SPIRIVA) RESPIMAT INHALER IH SCH (10:23)
[2022-02-27] MEDS: PRENATAL VITAMINS W/ FOLIC ACID TABLET (FP) PO SCH (10:23)
[2022-02-27] MEDS: NICOTINE 14 MG/24 HOURS TOPICAL PATCH TD SCH (10:23)
[2022-02-27] MEDS: hydrOXYzine PAMOATE 25 MG CAPSULE (FP) PO PRN ×2 (18:17→22:30)
[2022-02-27] MEDS: MELATONIN 5 MG TABLETS PO PRN (22:30)
[2022-02-27] MEDS: THIAMINE HCL 100 MG TABLET (FP) PO SCH (22:30)
[2022-02-28] MEDS: diazePAM 5 MG TABLET PO SCH ×2 (06:09→18:17)
[2022-02-28] MEDS: GABAPENTIN 100 MG CAPSULE PO SCH ×3 (06:09→22:40)
[2022-02-28] MEDS: PRENATAL VITAMINS W/ FOLIC ACID TABLET (FP) PO SCH (09:46)
[2022-02-28] MEDS: FOLIC ACID 1 MG TABLET (FP) PO SCH (09:46)
[2022-02-28] MEDS: BUDESONIDE/FORMETEROL FUMARATE 80/4.5 mcg INHALER IH SCH ×2 (09:47→22:41)
[2022-02-28] MEDS: NICOTINE 14 MG/24 HOURS TOPICAL PATCH TD SCH (09:47)
[2022-02-28] MEDS: hydrOXYzine PAMOATE 25 MG CAPSULE (FP) PO PRN ×2 (09:47→22:40)
[2022-02-28] MEDS: levETIRAcetam 250 MG TABLET PO SCH ×2 (09:47→22:41)
[2022-02-28] MEDS: SERTRALINE HCL 50 MG TABLET (FP) PO SCH (09:47)
[2022-02-28] MEDS: ASPIRIN 81 MG CHEWABLE TABLETS PO SCH (09:47)
[2022-02-28] MEDS: TIOTROPIUM BROMIDE 2.5 MCG (SPIRIVA) RESPIMAT INHALER IH SCH (09:48)
[2022-02-28 13:07] LABS: SARS-CoV-2 NAA Not Detected (Not Detected)
[2022-02-28] MEDS: amLODIPine BESYLATE 5 MG TABLET (FP) PO SCH (13:31)
[2022-02-28] MEDS: MELATONIN 5 MG TABLETS PO PRN (22:40)
[2022-02-28] MEDS: THIAMINE HCL 100 MG TABLET (FP) PO SCH (22:41)
[2022-02-28] MEDS: LATANOPROST 0.005% OPHTH SOLN 2.5ML BOTTLE OS SCH (22:41)
[2022-03-01] MEDS: GABAPENTIN 100 MG CAPSULE PO SCH (05:24)
[2022-03-01] MEDS ORDERED: diazePAM 5 MG TABLET PO ONE (06:00)
[2022-03-01] MEDS: PRENATAL VITAMINS W/ FOLIC ACID TABLET (FP) PO SCH (09:48)
[2022-03-01] MEDS: BUDESONIDE/FORMETEROL FUMARATE 80/4.5 mcg INHALER IH SCH (09:49)
[2022-03-01] MEDS: ASPIRIN 81 MG CHEWABLE TABLETS PO SCH (09:49)
[2022-03-01] MEDS: NICOTINE 14 MG/24 HOURS TOPICAL PATCH TD SCH (09:49)
[2022-03-01] MEDS: hydrOXYzine PAMOATE 25 MG CAPSULE (FP) PO PRN (09:49)
[2022-03-01] MEDS: levETIRAcetam 250 MG TABLET PO SCH (09:49)
[2022-03-01] MEDS: SERTRALINE HCL 50 MG TABLET (FP) PO SCH (09:49)
[2022-03-01] MEDS: amLODIPine BESYLATE 5 MG TABLET (FP) PO SCH (09:49)
[2022-03-01] MEDS: TIOTROPIUM BROMIDE 2.5 MCG (SPIRIVA) RESPIMAT INHALER IH SCH (09:50)
[2022-03-01] MEDS: FOLIC ACID 1 MG TABLET (FP) PO SCH (09:50)
[2022-03-01 09:56] VITALS: BP 120/67; PULSE 100; TEMP 97.1
== END 2022-03-01 12:50 | disposition other institution (70) | DRG 897 ==
LOC: YASAS 14:58 → Y6N 18:09
PROVIDERS: ADMIT Allergy & Immunology; ATTEND Allergy & Immunology
PROC: HZ2ZZZZ Detoxification Services for Substance Abuse Treatment (ICD-10-PCS; principal; 2022-02-25)
DX: F10.230 Alcohol dependence with withdrawal, uncomplicated (principal); C34.92 Malignant neoplasm of unspecified part of left bronchus or lung; F17.210 Nicotine dependence, cigarettes, uncomplicated; F10.280 Alcohol dependence with alcohol-induced anxiety disorder; F10.282 Alcohol dependence with alcohol-induced sleep disorder; F10.24 Alcohol dependence with alcohol-induced mood disorder; F32.A Depression, unspecified; G40.909 Epilepsy, unspecified, not intractable, without status epilepticus; I10 Essential (primary) hypertension; J44.9 Chronic obstructive pulmonary disease, unspecified; M48.061 Spinal stenosis, lumbar region without neurogenic claudication; M54.50 Low back pain, unspecified; Z99.89 Dependence on other enabling machines and devices; Z88.0 Allergy status to penicillin
CPT/HCPCS: 36415; 80053; 80177; 85027; 86780; C9803-CS; U0003; U0005

== ENCOUNTER 2022-03-01 12:53 | Inpatient (IN) | payer OTHER ==
[2022-03-01] MEDS ORDERED: MAGNESIUM HYDROX 2400MG/30ML ORAL SUSPENSION 30 ML CUP PO PRN (13:09)
[2022-03-01] MEDS ORDERED: IBUPROFEN 400 MG TABLET (FP) PO PRN (13:09)
[2022-03-01] MEDS ORDERED: MAGNESIUM CITRATE 300 ML BOTTLE PO PRN (13:09)
[2022-03-01] MEDS ORDERED: MAG HYDROX/AL HYDROX/SIMETH 30 ML UNIT-DOSE CUP PO PRN (13:09)
[2022-03-01] MEDS ORDERED: LOPERAMIDE HCL 2 MG CAPSULE PO PRN (13:09)
[2022-03-01] MEDS ORDERED: P-EPHED 60MG/TRIPROLIDI 2.5MG TABLET PO PRN (13:09)
[2022-03-01] MEDS ORDERED: BENZOCAINE/MENTHOL (CHLORASEPTIC ) LOZENGE MM PRN (13:09)
[2022-03-01] MEDS: GABAPENTIN 100 MG CAPSULE PO SCH ×2 (14:55→22:05)
[2022-03-01] MEDS: MELATONIN 5 MG TABLETS PO SCH (22:05)
[2022-03-01] MEDS: THIAMINE HCL 100 MG TABLET (FP) PO SCH (22:05)
[2022-03-01] MEDS: LATANOPROST 0.005% OPHTH SOLN 2.5ML BOTTLE OS SCH (22:05)
[2022-03-01] MEDS: levETIRAcetam 250 MG TABLET PO SCH (22:30)
[2022-03-02] MEDS: GABAPENTIN 100 MG CAPSULE PO SCH ×3 (06:41→21:57)
[2022-03-02] MEDS ORDERED: amLODIPine BESYLATE 5 MG TABLET (FP) PO SCH (10:00)
[2022-03-02] MEDS: NICOTINE 7 MG/24 HOURS TOPICAL PATCH TD SCH (10:22)
[2022-03-02] MEDS: levETIRAcetam 250 MG TABLET PO SCH ×2 (10:22→21:57)
[2022-03-02] MEDS: ASPIRIN 81 MG CHEWABLE TABLETS PO SCH (10:22)
[2022-03-02] MEDS: PRENATAL VITAMINS W/ FOLIC ACID TABLET (FP) PO SCH (10:23)
[2022-03-02] MEDS: TIOTROPIUM BROMIDE 2.5 MCG (SPIRIVA) RESPIMAT INHALER IH SCH (10:23)
[2022-03-02] MEDS: SERTRALINE HCL 50 MG TABLET (FP) PO SCH (10:24)
[2022-03-02] MEDS: THIAMINE HCL 100 MG TABLET (FP) PO SCH (21:57)
[2022-03-02] MEDS: LATANOPROST 0.005% OPHTH SOLN 2.5ML BOTTLE OS SCH (21:58)
[2022-03-02] MEDS: MELATONIN 5 MG TABLETS PO SCH (21:58)
[2022-03-03] MEDS: GABAPENTIN 100 MG CAPSULE PO SCH ×3 (06:41→22:07)
[2022-03-03] MEDS: TIOTROPIUM BROMIDE 2.5 MCG (SPIRIVA) RESPIMAT INHALER IH SCH (10:22)
[2022-03-03] MEDS: PRENATAL VITAMINS W/ FOLIC ACID TABLET (FP) PO SCH (10:22)
[2022-03-03] MEDS: SERTRALINE HCL 50 MG TABLET (FP) PO SCH (10:23)
[2022-03-03] MEDS: ASPIRIN 81 MG CHEWABLE TABLETS PO SCH (10:23)
[2022-03-03] MEDS: levETIRAcetam 250 MG TABLET PO SCH ×2 (10:24→22:06)
[2022-03-03] MEDS: NICOTINE 7 MG/24 HOURS TOPICAL PATCH TD SCH (10:25)
[2022-03-03] MEDS: MELATONIN 5 MG TABLETS PO SCH (22:07)
[2022-03-03] MEDS: THIAMINE HCL 100 MG TABLET (FP) PO SCH (22:07)
[2022-03-03] MEDS: hydrOXYzine PAMOATE 25 MG CAPSULE (FP) PO PRN (22:08)
[2022-03-03] MEDS: LATANOPROST 0.005% OPHTH SOLN 2.5ML BOTTLE OS SCH (22:08)
[2022-03-04] MEDS: GABAPENTIN 100 MG CAPSULE PO SCH ×3 (06:22→21:13)
[2022-03-04] MEDS: NICOTINE 10 MG CARTRIDGE (INHALER) IH PRN ×2 (08:59→21:16)
[2022-03-04] MEDS: ASPIRIN 81 MG CHEWABLE TABLETS PO SCH (10:42)
[2022-03-04] MEDS: PRENATAL VITAMINS W/ FOLIC ACID TABLET (FP) PO SCH (10:42)
[2022-03-04] MEDS: SERTRALINE HCL 50 MG TABLET (FP) PO SCH (10:42)
[2022-03-04] MEDS: levETIRAcetam 250 MG TABLET PO SCH ×2 (10:43→21:13)
[2022-03-04] MEDS: TIOTROPIUM BROMIDE 2.5 MCG (SPIRIVA) RESPIMAT INHALER IH SCH (10:43)
[2022-03-04] MEDS: NICOTINE 7 MG/24 HOURS TOPICAL PATCH TD SCH (10:44)
[2022-03-04] MEDS: MELATONIN 5 MG TABLETS PO SCH (21:13)
[2022-03-04] MEDS: THIAMINE HCL 100 MG TABLET (FP) PO SCH (21:13)
[2022-03-04] MEDS: LATANOPROST 0.005% OPHTH SOLN 2.5ML BOTTLE OS SCH (21:14)
[2022-03-05] MEDS: GABAPENTIN 100 MG CAPSULE PO SCH ×3 (06:24→21:26)
[2022-03-05] MEDS: NICOTINE 7 MG/24 HOURS TOPICAL PATCH TD SCH (10:34)
[2022-03-05] MEDS: levETIRAcetam 250 MG TABLET PO SCH ×2 (10:34→21:25)
[2022-03-05] MEDS: ASPIRIN 81 MG CHEWABLE TABLETS PO SCH (10:34)
[2022-03-05] MEDS: TIOTROPIUM BROMIDE 2.5 MCG (SPIRIVA) RESPIMAT INHALER IH SCH (10:35)
[2022-03-05] MEDS: PRENATAL VITAMINS W/ FOLIC ACID TABLET (FP) PO SCH (10:35)
[2022-03-05] MEDS: SERTRALINE HCL 50 MG TABLET (FP) PO SCH (10:35)
[2022-03-05 16:08] LABS: SARS-CoV-2 NAA Not Detected (Not Detected)
[2022-03-05] MEDS: MELATONIN 5 MG TABLETS PO SCH (21:26)
[2022-03-05] MEDS: LATANOPROST 0.005% OPHTH SOLN 2.5ML BOTTLE OS SCH (21:26)
[2022-03-05] MEDS: THIAMINE HCL 100 MG TABLET (FP) PO SCH (21:26)
[2022-03-06] MEDS: GABAPENTIN 100 MG CAPSULE PO SCH ×3 (06:54→21:14)
[2022-03-06] MEDS: ASPIRIN 81 MG CHEWABLE TABLETS PO SCH (10:32)
[2022-03-06] MEDS: SERTRALINE HCL 50 MG TABLET (FP) PO SCH (10:32)
[2022-03-06] MEDS: levETIRAcetam 250 MG TABLET PO SCH ×2 (10:32→21:13)
[2022-03-06] MEDS: PRENATAL VITAMINS W/ FOLIC ACID TABLET (FP) PO SCH (10:33)
[2022-03-06] MEDS: NICOTINE 7 MG/24 HOURS TOPICAL PATCH TD SCH (10:35)
[2022-03-06] MEDS: TIOTROPIUM BROMIDE 2.5 MCG (SPIRIVA) RESPIMAT INHALER IH SCH (10:36)
[2022-03-06] MEDS: LATANOPROST 0.005% OPHTH SOLN 2.5ML BOTTLE OS SCH (21:13)
[2022-03-06] MEDS: MELATONIN 5 MG TABLETS PO SCH (21:14)
[2022-03-06] MEDS: THIAMINE HCL 100 MG TABLET (FP) PO SCH (21:14)
[2022-03-07] MEDS: GABAPENTIN 100 MG CAPSULE PO SCH ×3 (07:27→21:19)
[2022-03-07] MEDS: SERTRALINE HCL 50 MG TABLET (FP) PO SCH (10:44)
[2022-03-07] MEDS: levETIRAcetam 250 MG TABLET PO SCH ×2 (10:44→21:19)
[2022-03-07] MEDS: PRENATAL VITAMINS W/ FOLIC ACID TABLET (FP) PO SCH (10:44)
[2022-03-07] MEDS: ASPIRIN 81 MG CHEWABLE TABLETS PO SCH (10:44)
[2022-03-07] MEDS: NICOTINE 7 MG/24 HOURS TOPICAL PATCH TD SCH (10:45)
[2022-03-07] MEDS: TIOTROPIUM BROMIDE 2.5 MCG (SPIRIVA) RESPIMAT INHALER IH SCH (10:47)
[2022-03-07] MEDS: LATANOPROST 0.005% OPHTH SOLN 2.5ML BOTTLE OS SCH (21:19)
[2022-03-07] MEDS: THIAMINE HCL 100 MG TABLET (FP) PO SCH (21:19)
[2022-03-07] MEDS: guaiFENesin 200 MG/10 ML 10 ML UNIT-DOSE CUPS PO PRN (21:20)
[2022-03-07] MEDS: MELATONIN 5 MG TABLETS PO SCH (21:20)
[2022-03-08] MEDS: GABAPENTIN 100 MG CAPSULE PO SCH ×3 (06:16→21:36)
[2022-03-08] MEDS ORDERED: COLLOIDAL OATMEAL 1 BAR EACH TP PRN (09:35)
[2022-03-08] MEDS: ALBUTEROL SO4 HFA INHALER IH PRN (10:45)
[2022-03-08] MEDS: SERTRALINE HCL 50 MG TABLET (FP) PO SCH (10:46)
[2022-03-08] MEDS: ASPIRIN 81 MG CHEWABLE TABLETS PO SCH (10:46)
[2022-03-08] MEDS: levETIRAcetam 250 MG TABLET PO SCH ×2 (10:47→21:36)
[2022-03-08] MEDS: NICOTINE 7 MG/24 HOURS TOPICAL PATCH TD SCH (10:48)
[2022-03-08] MEDS: PRENATAL VITAMINS W/ FOLIC ACID TABLET (FP) PO SCH (10:48)
[2022-03-08] MEDS: TIOTROPIUM BROMIDE 2.5 MCG (SPIRIVA) RESPIMAT INHALER IH SCH (10:49)
[2022-03-08] MEDS: MINERAL OIL/PETROLAT/WATER TOPICAL CREAM 113 GM JAR TP SCH (12:46)
[2022-03-08] MEDS: MELATONIN 5 MG TABLETS PO SCH (21:35)
[2022-03-08] MEDS: THIAMINE HCL 100 MG TABLET (FP) PO SCH (21:36)
[2022-03-08] MEDS: LATANOPROST 0.005% OPHTH SOLN 2.5ML BOTTLE OS SCH (21:37)
[2022-03-09] MEDS: GABAPENTIN 100 MG CAPSULE PO SCH ×3 (06:44→21:08)
[2022-03-09] MEDS: hydrOXYzine PAMOATE 25 MG CAPSULE (FP) PO PRN (06:44)
[2022-03-09] MEDS: ASPIRIN 81 MG CHEWABLE TABLETS PO SCH (11:06)
[2022-03-09] MEDS: SERTRALINE HCL 50 MG TABLET (FP) PO SCH (11:06)
[2022-03-09] MEDS: PRENATAL VITAMINS W/ FOLIC ACID TABLET (FP) PO SCH (11:07)
[2022-03-09] MEDS: TIOTROPIUM BROMIDE 2.5 MCG (SPIRIVA) RESPIMAT INHALER IH SCH (11:07)
[2022-03-09] MEDS: NICOTINE 7 MG/24 HOURS TOPICAL PATCH TD SCH (11:07)
[2022-03-09] MEDS: levETIRAcetam 250 MG TABLET PO SCH ×2 (11:08→21:08)
[2022-03-09] MEDS: MINERAL OIL/PETROLAT/WATER TOPICAL CREAM 113 GM JAR TP SCH (11:09)
[2022-03-09] MEDS: THIAMINE HCL 100 MG TABLET (FP) PO SCH (21:08)
[2022-03-09] MEDS: MELATONIN 5 MG TABLETS PO SCH (21:08)
[2022-03-09] MEDS: LATANOPROST 0.005% OPHTH SOLN 2.5ML BOTTLE OS SCH (21:09)
[2022-03-10] MEDS: GABAPENTIN 100 MG CAPSULE PO SCH ×3 (06:22→21:15)
[2022-03-10] MEDS: SERTRALINE HCL 50 MG TABLET (FP) PO SCH (10:49)
[2022-03-10] MEDS: NICOTINE 7 MG/24 HOURS TOPICAL PATCH TD SCH (10:49)
[2022-03-10] MEDS: ASPIRIN 81 MG CHEWABLE TABLETS PO SCH (10:49)
[2022-03-10] MEDS: PRENATAL VITAMINS W/ FOLIC ACID TABLET (FP) PO SCH (10:49)
[2022-03-10] MEDS: MINERAL OIL/PETROLAT/WATER TOPICAL CREAM 113 GM JAR TP SCH (10:51)
[2022-03-10] MEDS: levETIRAcetam 250 MG TABLET PO SCH ×2 (10:53→21:15)
[2022-03-10] MEDS: TIOTROPIUM BROMIDE 2.5 MCG (SPIRIVA) RESPIMAT INHALER IH SCH (10:53)
[2022-03-10] MEDS: ACETAMINOPHEN 325 MG TABLET (FP) PO PRN (21:14)
[2022-03-10] MEDS: THIAMINE HCL 100 MG TABLET (FP) PO SCH (21:15)
[2022-03-10] MEDS: LATANOPROST 0.005% OPHTH SOLN 2.5ML BOTTLE OS SCH (21:15)
[2022-03-10] MEDS: MELATONIN 5 MG TABLETS PO SCH (21:15)
[2022-03-11] MEDS: GABAPENTIN 100 MG CAPSULE PO SCH ×3 (06:21→21:34)
[2022-03-11] MEDS: ACETAMINOPHEN 325 MG TABLET (FP) PO PRN (06:23)
[2022-03-11] MEDS: PRENATAL VITAMINS W/ FOLIC ACID TABLET (FP) PO SCH (10:53)
[2022-03-11] MEDS: NICOTINE 7 MG/24 HOURS TOPICAL PATCH TD SCH (10:53)
[2022-03-11] MEDS: TIOTROPIUM BROMIDE 2.5 MCG (SPIRIVA) RESPIMAT INHALER IH SCH (10:53)
[2022-03-11] MEDS: levETIRAcetam 250 MG TABLET PO SCH ×2 (10:54→21:34)
[2022-03-11] MEDS: SERTRALINE HCL 50 MG TABLET (FP) PO SCH (10:54)
[2022-03-11] MEDS: ASPIRIN 81 MG CHEWABLE TABLETS PO SCH (10:54)
[2022-03-11] MEDS: MINERAL OIL/PETROLAT/WATER TOPICAL CREAM 113 GM JAR TP SCH (10:56)
[2022-03-11] MEDS: LATANOPROST 0.005% OPHTH SOLN 2.5ML BOTTLE OS SCH (21:33)
[2022-03-11] MEDS: MELATONIN 5 MG TABLETS PO SCH (21:34)
[2022-03-11] MEDS: THIAMINE HCL 100 MG TABLET (FP) PO SCH (21:34)
[2022-03-12] MEDS: GABAPENTIN 100 MG CAPSULE PO SCH ×3 (06:23→21:24)
[2022-03-12] MEDS: hydrOXYzine PAMOATE 25 MG CAPSULE (FP) PO PRN (06:23)
[2022-03-12] MEDS: ASPIRIN 81 MG CHEWABLE TABLETS PO SCH (10:39)
[2022-03-12] MEDS: SERTRALINE HCL 50 MG TABLET (FP) PO SCH (10:39)
[2022-03-12] MEDS: TIOTROPIUM BROMIDE 2.5 MCG (SPIRIVA) RESPIMAT INHALER IH SCH (10:39)
[2022-03-12] MEDS: PRENATAL VITAMINS W/ FOLIC ACID TABLET (FP) PO SCH (10:39)
[2022-03-12] MEDS: levETIRAcetam 250 MG TABLET PO SCH ×2 (10:40→21:24)
[2022-03-12] MEDS: NICOTINE 7 MG/24 HOURS TOPICAL PATCH TD SCH (10:41)
[2022-03-12] MEDS: MINERAL OIL/PETROLAT/WATER TOPICAL CREAM 113 GM JAR TP SCH (10:41)
[2022-03-12] MEDS: MELATONIN 5 MG TABLETS PO SCH (21:23)
[2022-03-12] MEDS: THIAMINE HCL 100 MG TABLET (FP) PO SCH (21:24)
[2022-03-12] MEDS: LATANOPROST 0.005% OPHTH SOLN 2.5ML BOTTLE OS SCH (21:25)
[2022-03-13] MEDS: GABAPENTIN 100 MG CAPSULE PO SCH ×3 (06:27→21:25)
[2022-03-13] MEDS: SERTRALINE HCL 50 MG TABLET (FP) PO SCH (10:31)
[2022-03-13] MEDS: ASPIRIN 81 MG CHEWABLE TABLETS PO SCH (10:31)
[2022-03-13] MEDS: PRENATAL VITAMINS W/ FOLIC ACID TABLET (FP) PO SCH (10:31)
[2022-03-13] MEDS: NICOTINE 7 MG/24 HOURS TOPICAL PATCH TD SCH (10:32)
[2022-03-13] MEDS: levETIRAcetam 250 MG TABLET PO SCH ×2 (10:34→21:24)
[2022-03-13] MEDS: MINERAL OIL/PETROLAT/WATER TOPICAL CREAM 113 GM JAR TP SCH (10:36)
[2022-03-13] MEDS: TIOTROPIUM BROMIDE 2.5 MCG (SPIRIVA) RESPIMAT INHALER IH SCH (11:04)
[2022-03-13] MEDS: THIAMINE HCL 100 MG TABLET (FP) PO SCH (21:25)
[2022-03-13] MEDS: LATANOPROST 0.005% OPHTH SOLN 2.5ML BOTTLE OS SCH (21:25)
[2022-03-13] MEDS: MELATONIN 5 MG TABLETS PO SCH (21:25)
[2022-03-14] MEDS: GABAPENTIN 100 MG CAPSULE PO SCH ×3 (06:13→21:15)
[2022-03-14] MEDS: TIOTROPIUM BROMIDE 2.5 MCG (SPIRIVA) RESPIMAT INHALER IH SCH (10:37)
[2022-03-14] MEDS: SERTRALINE HCL 50 MG TABLET (FP) PO SCH (10:38)
[2022-03-14] MEDS: ASPIRIN 81 MG CHEWABLE TABLETS PO SCH (10:38)
[2022-03-14] MEDS: levETIRAcetam 250 MG TABLET PO SCH ×2 (10:39→21:14)
[2022-03-14] MEDS: MINERAL OIL/PETROLAT/WATER TOPICAL CREAM 113 GM JAR TP SCH (10:40)
[2022-03-14] MEDS: PRENATAL VITAMINS W/ FOLIC ACID TABLET (FP) PO SCH (10:40)
[2022-03-14] MEDS: NICOTINE 7 MG/24 HOURS TOPICAL PATCH TD SCH (10:41)
[2022-03-14] MEDS: LATANOPROST 0.005% OPHTH SOLN 2.5ML BOTTLE OS SCH (21:15)
[2022-03-14] MEDS: MELATONIN 5 MG TABLETS PO SCH (21:15)
[2022-03-14] MEDS: THIAMINE HCL 100 MG TABLET (FP) PO SCH (21:15)
[2022-03-15] MEDS: GABAPENTIN 100 MG CAPSULE PO SCH ×3 (06:40→21:16)
[2022-03-15] MEDS: PRENATAL VITAMINS W/ FOLIC ACID TABLET (FP) PO SCH (10:33)
[2022-03-15] MEDS: NICOTINE 7 MG/24 HOURS TOPICAL PATCH TD SCH (10:33)
[2022-03-15] MEDS: levETIRAcetam 250 MG TABLET PO SCH ×2 (10:34→21:16)
[2022-03-15] MEDS: SERTRALINE HCL 50 MG TABLET (FP) PO SCH (10:34)
[2022-03-15] MEDS: MINERAL OIL/PETROLAT/WATER TOPICAL CREAM 113 GM JAR TP SCH (10:34)
[2022-03-15] MEDS: ASPIRIN 81 MG CHEWABLE TABLETS PO SCH (10:34)
[2022-03-15] MEDS: TIOTROPIUM BROMIDE 2.5 MCG (SPIRIVA) RESPIMAT INHALER IH SCH (10:35)
[2022-03-15] MEDS: MELATONIN 5 MG TABLETS PO SCH (21:16)
[2022-03-15] MEDS: THIAMINE HCL 100 MG TABLET (FP) PO SCH (21:16)
[2022-03-15] MEDS: LATANOPROST 0.005% OPHTH SOLN 2.5ML BOTTLE OS SCH (21:17)
[2022-03-15] MEDS: ACETAMINOPHEN 325 MG TABLET (FP) PO PRN (23:11)
[2022-03-16] MEDS: GABAPENTIN 100 MG CAPSULE PO SCH ×3 (06:24→21:57)
[2022-03-16] MEDS: TIOTROPIUM BROMIDE 2.5 MCG (SPIRIVA) RESPIMAT INHALER IH SCH (10:55)
[2022-03-16] MEDS: levETIRAcetam 250 MG TABLET PO SCH ×2 (10:56→21:59)
[2022-03-16] MEDS: PRENATAL VITAMINS W/ FOLIC ACID TABLET (FP) PO SCH (10:56)
[2022-03-16] MEDS: ASPIRIN 81 MG CHEWABLE TABLETS PO SCH (10:56)
[2022-03-16] MEDS: NICOTINE 7 MG/24 HOURS TOPICAL PATCH TD SCH (10:56)
[2022-03-16] MEDS: SERTRALINE HCL 50 MG TABLET (FP) PO SCH (10:56)
[2022-03-16] MEDS: MINERAL OIL/PETROLAT/WATER TOPICAL CREAM 113 GM JAR TP SCH (10:58)
[2022-03-16] MEDS: THIAMINE HCL 100 MG TABLET (FP) PO SCH (21:57)
[2022-03-16] MEDS: MELATONIN 5 MG TABLETS PO SCH (21:57)
[2022-03-16] MEDS: LATANOPROST 0.005% OPHTH SOLN 2.5ML BOTTLE OS SCH (21:58)
[2022-03-16] MEDS: ALBUTEROL SO4 HFA INHALER IH PRN (22:01)
[2022-03-17] MEDS: GABAPENTIN 100 MG CAPSULE PO SCH ×3 (06:44→21:09)
[2022-03-17] MEDS: ASPIRIN 81 MG CHEWABLE TABLETS PO SCH (10:34)
[2022-03-17] MEDS: SERTRALINE HCL 50 MG TABLET (FP) PO SCH (10:34)
[2022-03-17] MEDS: PRENATAL VITAMINS W/ FOLIC ACID TABLET (FP) PO SCH (10:34)
[2022-03-17] MEDS: NICOTINE 7 MG/24 HOURS TOPICAL PATCH TD SCH (10:34)
[2022-03-17] MEDS: ALBUTEROL SO4 HFA INHALER IH PRN (10:35)
[2022-03-17] MEDS: levETIRAcetam 250 MG TABLET PO SCH ×2 (10:35→21:10)
[2022-03-17] MEDS: MINERAL OIL/PETROLAT/WATER TOPICAL CREAM 113 GM JAR TP SCH (10:35)
[2022-03-17] MEDS: guaiFENesin 200 MG/10 ML 10 ML UNIT-DOSE CUPS PO PRN ×2 (10:38→21:12)
[2022-03-17] MEDS: TIOTROPIUM BROMIDE 2.5 MCG (SPIRIVA) RESPIMAT INHALER IH SCH (14:04)
[2022-03-17] MEDS: MELATONIN 5 MG TABLETS PO SCH (21:09)
[2022-03-17] MEDS: LATANOPROST 0.005% OPHTH SOLN 2.5ML BOTTLE OS SCH (21:10)
[2022-03-17] MEDS: THIAMINE HCL 100 MG TABLET (FP) PO SCH (21:10)
[2022-03-18] MEDS: GABAPENTIN 100 MG CAPSULE PO SCH ×3 (06:23→21:12)
[2022-03-18] MEDS: ASPIRIN 81 MG CHEWABLE TABLETS PO SCH (11:07)
[2022-03-18] MEDS: MINERAL OIL/PETROLAT/WATER TOPICAL CREAM 113 GM JAR TP SCH (11:07)
[2022-03-18] MEDS: NICOTINE 7 MG/24 HOURS TOPICAL PATCH TD SCH (11:07)
[2022-03-18] MEDS: levETIRAcetam 250 MG TABLET PO SCH ×2 (11:07→21:12)
[2022-03-18] MEDS: PRENATAL VITAMINS W/ FOLIC ACID TABLET (FP) PO SCH (11:08)
[2022-03-18] MEDS: TIOTROPIUM BROMIDE 2.5 MCG (SPIRIVA) RESPIMAT INHALER IH SCH (11:08)
[2022-03-18] MEDS: SERTRALINE HCL 50 MG TABLET (FP) PO SCH (11:08)
[2022-03-18] MEDS: THIAMINE HCL 100 MG TABLET (FP) PO SCH (21:12)
[2022-03-18] MEDS: LATANOPROST 0.005% OPHTH SOLN 2.5ML BOTTLE OS SCH (21:12)
[2022-03-18] MEDS: MELATONIN 5 MG TABLETS PO SCH (21:12)
[2022-03-18] MEDS: guaiFENesin 200 MG/10 ML 10 ML UNIT-DOSE CUPS PO PRN (21:14)
[2022-03-19] MEDS: GABAPENTIN 100 MG CAPSULE PO SCH ×3 (06:48→21:23)
[2022-03-19] MEDS: SERTRALINE HCL 50 MG TABLET (FP) PO SCH (10:56)
[2022-03-19] MEDS: PRENATAL VITAMINS W/ FOLIC ACID TABLET (FP) PO SCH (10:56)
[2022-03-19] MEDS: NICOTINE 7 MG/24 HOURS TOPICAL PATCH TD SCH (10:56)
[2022-03-19] MEDS: ASPIRIN 81 MG CHEWABLE TABLETS PO SCH (10:56)
[2022-03-19] MEDS: levETIRAcetam 250 MG TABLET PO SCH ×2 (10:57→21:23)
[2022-03-19] MEDS: MINERAL OIL/PETROLAT/WATER TOPICAL CREAM 113 GM JAR TP SCH (10:57)
[2022-03-19] MEDS: TIOTROPIUM BROMIDE 2.5 MCG (SPIRIVA) RESPIMAT INHALER IH SCH (10:57)
[2022-03-19] MEDS: MELATONIN 5 MG TABLETS PO SCH (21:21)
[2022-03-19] MEDS: THIAMINE HCL 100 MG TABLET (FP) PO SCH (21:23)
[2022-03-19] MEDS: LATANOPROST 0.005% OPHTH SOLN 2.5ML BOTTLE OS SCH (21:24)
[2022-03-20] MEDS: hydrOXYzine PAMOATE 25 MG CAPSULE (FP) PO PRN (06:14)
[2022-03-20] MEDS: GABAPENTIN 100 MG CAPSULE PO SCH ×2 (06:14→13:28)
[2022-03-20 08:12] VITALS: BP 113/58; PULSE 84; TEMP 97.3
[2022-03-20] MEDS: PRENATAL VITAMINS W/ FOLIC ACID TABLET (FP) PO SCH (10:44)
[2022-03-20] MEDS: levETIRAcetam 250 MG TABLET PO SCH (10:45)
[2022-03-20] MEDS: ASPIRIN 81 MG CHEWABLE TABLETS PO SCH (10:45)
[2022-03-20] MEDS: SERTRALINE HCL 50 MG TABLET (FP) PO SCH (10:45)
[2022-03-20] MEDS: TIOTROPIUM BROMIDE 2.5 MCG (SPIRIVA) RESPIMAT INHALER IH SCH (10:48)
[2022-03-20] MEDS: NICOTINE 7 MG/24 HOURS TOPICAL PATCH TD SCH (10:48)
[2022-03-20] MEDS: MINERAL OIL/PETROLAT/WATER TOPICAL CREAM 113 GM JAR TP SCH (10:48)
== END 2022-03-20 16:00 | disposition home or self-care (01) | DRG 951 ==
LOC: YASAS 12:53 → Y5N 12:54
PROVIDERS: ADMIT Allergy & Immunology; ATTEND Allergy & Immunology
PROC: HZ42ZZZ Group Counseling for Substance Abuse Treatment, Cognitive-Behavioral (ICD-10-PCS; principal; 2022-03-01)
DX: F17.210 Nicotine dependence, cigarettes, uncomplicated (principal); Z68.1 Body mass index [BMI] 19.9 or less, adult; F10.20 Alcohol dependence, uncomplicated; G40.909 Epilepsy, unspecified, not intractable, without status epilepticus; I10 Essential (primary) hypertension; E78.5 Hyperlipidemia, unspecified; H40.9 Unspecified glaucoma; J44.9 Chronic obstructive pulmonary disease, unspecified; L85.3 Xerosis cutis; M48.00 Spinal stenosis, site unspecified; M14.60 Charcot's joint, unspecified site; Z99.89 Dependence on other enabling machines and devices; R63.4 Abnormal weight loss; Z88.0 Allergy status to penicillin
CPT/HCPCS: C9803-CS; U0003; U0005

== ENCOUNTER 2023-01-24 11:06 | Inpatient (IN) | payer OTHER ==
[2023-01-24 11:24] VITALS: BMI 19.0
[2023-01-24] MEDS ORDERED: NICOTINE POLACRILEX 2 MG GUM BUC PRN (11:50)
[2023-01-24] MEDS ORDERED: MAG HYDROX/AL HYDROX/SIMETH 30 ML UNIT-DOSE CUP PO PRN (11:50)
[2023-01-24] MEDS ORDERED: NICOTINE 10 MG CARTRIDGE (INHALER) IH PRN (11:50)
[2023-01-24] MEDS ORDERED: guaiFENesin 600 MG TABLET.ER (FP) PO PRN (11:50)
[2023-01-24] MEDS ORDERED: BISMUTH SUBSALICYLATE 524 MG/30 ML PO PRN (11:50)
[2023-01-24] MEDS ORDERED: IBUPROFEN 400 MG TABLET (FP) PO PRN (11:50)
[2023-01-24] MEDS ORDERED: IBUPROFEN 600 MG TABLET (FP) PO PRN (11:50)
[2023-01-24] MEDS ORDERED: ONDANSETRON *ODT* 4 MG TABLET SL PRN (11:50)
[2023-01-24] MEDS ORDERED: DICYCLOMINE HCL 10 MG CAPSULE PO PRN (11:50)
[2023-01-24] MEDS ORDERED: LOPERAMIDE HCL 2 MG CAPSULE PO PRN (11:50)
[2023-01-24] MEDS ORDERED: METHOCARBAMOL 500 MG TABLET PO PRN (11:50)
[2023-01-24] MEDS ORDERED: NALOXONE HCL (KLOXXADO) 8 MG SPRAY NS PRN (11:50)
[2023-01-24] MEDS ORDERED: BENZONATATE 200 MG CAPSULE PO PRN (11:50)
[2023-01-24] MEDS ORDERED: MAGNESIUM HYDROX 2400MG/30ML ORAL SUSPENSION 30 ML CUP PO PRN (11:50)
[2023-01-24] MEDS ORDERED: POLYETHYLENE GLYCOL (HEALTHYLAX) 3350 17 GM PACKET PO PRN (11:50)
[2023-01-24] MEDS ORDERED: ACETAMINOPHEN 325 MG TABLET (FP) PO PRN (11:50)
[2023-01-24] MEDS ORDERED: NALOXONE HCL 0.4 MG/ML VIAL IM PRN (11:50)
[2023-01-24] MEDS ORDERED: COLLOIDAL OATMEAL 1 BAR EACH TP PRN (12:01)
[2023-01-24 14:37] LABS: HEMATOCRIT 35.7 % (32.4-45.2); HEMOGLOBIN 12.4 GM/dL (10.7-15.3); MCH 31.1 pg (25.7-33.7); MCHC 34.8 g/dl (32.0-36.0); MEAN CELL VOLUME 89.3 fl (80-96); MEAN PLT VOLUME 9.3 fl (7.5-11.1); PLATELET COUNT 264 10^3/uL (134-434); RDW 14.5 % (11.6-15.6); WHITE BLOOD COUNT 5.9 K/mm3 (4.0-10.0)
[2023-01-24 14:44] LABS: ALBUMIN 3.7 g/dl (3.4-5.0); BLOOD UREA NITROGEN 3.9 mg/dL (7-18); CALCIUM 9.5 mg/dL (8.5-10.1)
[2023-01-24 14:47] LABS: CREATININE 0.7 mg/dL (0.55-1.3)
[2023-01-24 14:49] LABS: BILIRUBIN,TOTAL 0.5 mg/dL (0.2-1); TOT PROT 8.8 g/dl (6.4-8.2)
[2023-01-24] MEDS ORDERED: ALBUTEROL SO4 HFA INHALER IH PRN (21:07)
[2023-01-24] MEDS ORDERED: PATIENT'S OWN MEDICATION (NON-FORMULARY) (Levetiracetam [Levetiracetam] 750 MG Tablet) PO SCH (22:00)
[2023-01-24] MEDS: THIAMINE HCL 100 MG TABLET (FP) PO SCH (22:38)
[2023-01-24] MEDS: ATORVASTATIN CA 40 MG TABLET (FP) PO SCH (22:38)
[2023-01-24] MEDS: MELATONIN 5 MG TABLETS PO SCH (22:38)
[2023-01-24] MEDS: TOLNAFTATE 1% CREAM 15 GM TUBE TP SCH (22:39)
[2023-01-25] MEDS: BENZOCAINE/MENTHOL (CHLORASEPTIC ) LOZENGE MM PRN (07:58)
[2023-01-25] MEDS: hydrOXYzine PAMOATE 25 MG CAPSULE (FP) PO PRN ×2 (07:58→20:53)
[2023-01-25] MEDS: PRENATAL VITAMINS W/ FOLIC ACID TABLET (FP) PO SCH (10:40)
[2023-01-25] MEDS: ASPIRIN 81 MG CHEWABLE TABLETS PO SCH (10:41)
[2023-01-25] MEDS: SERTRALINE HCL 50 MG TABLET (FP) PO SCH (10:45)
[2023-01-25] MEDS: TOLNAFTATE 1% CREAM 15 GM TUBE TP SCH ×2 (10:47→21:25)
[2023-01-25] MEDS: LACTULOSE 20 GM/30 ML UDC (FOR ORAL USE ONLY) PO SCH ×2 (14:35→21:16)
[2023-01-25] MEDS: ATORVASTATIN CA 40 MG TABLET (FP) PO SCH (21:12)
[2023-01-25] MEDS: THIAMINE HCL 100 MG TABLET (FP) PO SCH (21:13)
[2023-01-25] MEDS: MELATONIN 5 MG TABLETS PO SCH (21:13)
[2023-01-26] MEDS: LACTULOSE 20 GM/30 ML UDC (FOR ORAL USE ONLY) PO SCH ×2 (05:45→13:39)
[2023-01-26] MEDS: PRENATAL VITAMINS W/ FOLIC ACID TABLET (FP) PO SCH (10:28)
[2023-01-26] MEDS: TOLNAFTATE 1% CREAM 15 GM TUBE TP SCH (10:29)
[2023-01-26] MEDS: ASPIRIN 81 MG CHEWABLE TABLETS PO SCH (10:29)
[2023-01-26] MEDS: SERTRALINE HCL 50 MG TABLET (FP) PO SCH (10:29)
[2023-01-26] MEDS: BENZOCAINE/MENTHOL (CHLORASEPTIC ) LOZENGE MM PRN (11:33)
[2023-01-26 13:45] VITALS: BP 151/78; PULSE 89; RESP 16; TEMP 97.7
== END 2023-01-26 16:12 | disposition home or self-care (01) | DRG 897 ==
LOC: YASAS 11:06 → Y6N 12:55
PROVIDERS: ADMIT Allergy & Immunology; ATTEND Surgery
PROC: HZ2ZZZZ Detoxification Services for Substance Abuse Treatment (ICD-10-PCS; principal; 2023-01-24)
DX: F10.230 Alcohol dependence with withdrawal, uncomplicated (principal); F17.210 Nicotine dependence, cigarettes, uncomplicated; F10.282 Alcohol dependence with alcohol-induced sleep disorder; F32.9 Major depressive disorder, single episode, unspecified; G40.909 Epilepsy, unspecified, not intractable, without status epilepticus; I10 Essential (primary) hypertension; E78.5 Hyperlipidemia, unspecified; J43.9 Emphysema, unspecified; J45.20 Mild intermittent asthma, uncomplicated; M48.00 Spinal stenosis, site unspecified; R79.89 Other specified abnormal findings of blood chemistry; R63.4 Abnormal weight loss; Z68.1 Body mass index [BMI] 19.9 or less, adult; Z85.118 Personal history of other malignant neoplasm of bronchus and lung; Z99.89 Dependence on other enabling machines and devices; Z88.0 Allergy status to penicillin
CPT/HCPCS: 36415; 80053; 82140; 85027; 86780; 93005; 93010; C9803-CS; U0003; U0005

== ENCOUNTER 2023-02-06 11:51 | Inpatient (IN) | payer OTHER ==
[2023-02-06 13:00] VITALS: BMI 19.2
[2023-02-06] MEDS ORDERED: NALOXONE HCL (KLOXXADO) 8 MG SPRAY NS PRN (14:00)
[2023-02-06] MEDS ORDERED: POLYETHYLENE GLYCOL (HEALTHYLAX) 3350 17 GM PACKET PO PRN (14:00)
[2023-02-06] MEDS ORDERED: COLLOIDAL OATMEAL 1 BAR EACH TP PRN (14:00)
[2023-02-06] MEDS ORDERED: NALOXONE HCL 0.4 MG/ML VIAL IM PRN (14:00)
[2023-02-06] MEDS ORDERED: LOPERAMIDE HCL 2 MG CAPSULE PO PRN (14:00)
[2023-02-06] MEDS ORDERED: NICOTINE 10 MG CARTRIDGE (INHALER) IH PRN (14:00)
[2023-02-06] MEDS ORDERED: IBUPROFEN 600 MG TABLET (FP) PO PRN (14:00)
[2023-02-06] MEDS ORDERED: MAGNESIUM HYDROX 2400MG/30ML ORAL SUSPENSION 30 ML CUP PO PRN (14:00)
[2023-02-06] MEDS ORDERED: BENZONATATE 200 MG CAPSULE PO PRN (14:00)
[2023-02-06] MEDS ORDERED: ACETAMINOPHEN 325 MG TABLET (FP) PO PRN (14:00)
[2023-02-06] MEDS ORDERED: IBUPROFEN 400 MG TABLET (FP) PO PRN (14:00)
[2023-02-06] MEDS: PRENATAL VITAMINS W/ FOLIC ACID TABLET (FP) PO SCH (15:16)
[2023-02-06 17:48] LABS: HEMATOCRIT 36.1 % (32.4-45.2); HEMOGLOBIN 12.6 GM/dL (10.7-15.3); MCH 31.2 pg (25.7-33.7); MCHC 34.7 g/dl (32.0-36.0); MEAN CELL VOLUME 89.7 fl (80-96); MEAN PLT VOLUME 8.5 fl (7.5-11.1); PLATELET COUNT 259 10^3/uL (134-434); RBC 4.03 M/mm3 (3.60-5.2); RDW 14.2 % (11.6-15.6); WHITE BLOOD COUNT 6.7 K/mm3 (4.0-10.0)
[2023-02-06 17:53] LABS: ALBUMIN 3.6 g/dl (3.4-5.0); BLOOD UREA NITROGEN 5.1 mg/dL (7-18); CALCIUM 9.7 mg/dL (8.5-10.1)
[2023-02-06 17:56] LABS: CREATININE 0.7 mg/dL (0.55-1.3)
[2023-02-06 17:58] LABS: BILIRUBIN,TOTAL 0.3 mg/dL (0.2-1); TOT PROT 8.6 g/dl (6.4-8.2)
[2023-02-06 18:19] LABS: SYPHILIS W/ RPR CONF NON-REACTIVE (NONREACTIVE)
[2023-02-06] MEDS: levETIRAcetam 250 MG TABLET PO SCH (21:31)
[2023-02-06] MEDS: ATORVASTATIN CA 40 MG TABLET (FP) PO SCH (21:32)
[2023-02-06] MEDS: THIAMINE HCL 100 MG TABLET (FP) PO SCH (21:32)
[2023-02-06] MEDS: GABAPENTIN 100 MG CAPSULE PO SCH (21:32)
[2023-02-06] MEDS: MELATONIN 5 MG TABLETS PO SCH (21:32)
[2023-02-06] MEDS: BUDESONIDE/FORMETEROL FUMARATE 80/4.5 mcg INHALER IH SCH (21:40)
[2023-02-07] MEDS: GABAPENTIN 100 MG CAPSULE PO SCH ×3 (06:30→21:49)
[2023-02-07] MEDS: BENZOCAINE/MENTHOL (CHLORASEPTIC ) LOZENGE MM PRN ×2 (06:31→23:44)
[2023-02-07] MEDS ORDERED: PATIENT'S OWN MEDICATION (NON-FORMULARY) (Umeclidinium Bromide [Incruse Ellipta] 62.5 MCG IH SCH (10:00)
[2023-02-07] MEDS: levETIRAcetam 250 MG TABLET PO SCH ×2 (10:05→21:49)
[2023-02-07] MEDS: ASPIRIN 81 MG CHEWABLE TABLETS PO SCH (10:05)
[2023-02-07] MEDS: PRENATAL VITAMINS W/ FOLIC ACID TABLET (FP) PO SCH (10:05)
[2023-02-07] MEDS: BUDESONIDE/FORMETEROL FUMARATE 80/4.5 mcg INHALER IH SCH ×2 (10:05→21:48)
[2023-02-07] MEDS: SERTRALINE HCL 50 MG TABLET (FP) PO SCH (10:07)
[2023-02-07] MEDS: guaiFENesin 600 MG TABLET.ER (FP) PO PRN ×2 (10:26→23:32)
[2023-02-07] MEDS: TIOTROPIUM BROMIDE 2.5 MCG (SPIRIVA) RESPIMAT INHALER IH SCH (11:11)
[2023-02-07] MEDS ORDERED: LACTULOSE 20 GM/30 ML UDC (FOR ORAL USE ONLY) PO PRN (13:23)
[2023-02-07] MEDS: ALBUTEROL SO4 HFA INHALER IH PRN ×3 (18:32→23:32)
[2023-02-07] MEDS: THIAMINE HCL 100 MG TABLET (FP) PO SCH (21:49)
[2023-02-07] MEDS: LACTULOSE 20 GM/30 ML UDC (FOR ORAL USE ONLY) PO SCH (21:49)
[2023-02-07] MEDS: ATORVASTATIN CA 40 MG TABLET (FP) PO SCH (21:49)
[2023-02-07] MEDS: MELATONIN 5 MG TABLETS PO SCH (21:49)
[2023-02-07] MEDS: LATANOPROST 0.005% OPHTH SOLN 2.5ML BOTTLE OS SCH ×2 (21:52→23:50)
[2023-02-08] MEDS: GABAPENTIN 100 MG CAPSULE PO SCH ×3 (06:30→21:33)
[2023-02-08] MEDS: hydrOXYzine PAMOATE 25 MG CAPSULE (FP) PO PRN ×2 (06:30→21:33)
[2023-02-08] MEDS: LACTULOSE 20 GM/30 ML UDC (FOR ORAL USE ONLY) PO SCH ×3 (06:30→21:32)
[2023-02-08] MEDS: ASPIRIN 81 MG CHEWABLE TABLETS PO SCH (10:50)
[2023-02-08] MEDS: BUDESONIDE/FORMETEROL FUMARATE 80/4.5 mcg INHALER IH SCH ×2 (10:51→21:32)
[2023-02-08] MEDS: SERTRALINE HCL 50 MG TABLET (FP) PO SCH (10:51)
[2023-02-08] MEDS: PRENATAL VITAMINS W/ FOLIC ACID TABLET (FP) PO SCH (10:51)
[2023-02-08] MEDS: levETIRAcetam 250 MG TABLET PO SCH ×2 (10:51→21:33)
[2023-02-08] MEDS: TIOTROPIUM BROMIDE 2.5 MCG (SPIRIVA) RESPIMAT INHALER IH SCH (10:52)
[2023-02-08] MEDS: ATORVASTATIN CA 40 MG TABLET (FP) PO SCH (21:33)
[2023-02-08] MEDS: THIAMINE HCL 100 MG TABLET (FP) PO SCH (21:33)
[2023-02-08] MEDS: AMMONIUM LACTATE 12% LOTION 225 GM BOTTLE TP PRN (21:34)
[2023-02-08] MEDS: LATANOPROST 0.005% OPHTH SOLN 2.5ML BOTTLE OS SCH (21:36)
[2023-02-08] MEDS: MELATONIN 5 MG TABLETS PO SCH (21:46)
[2023-02-09] MEDS: GABAPENTIN 100 MG CAPSULE PO SCH ×3 (06:36→21:51)
[2023-02-09] MEDS: LACTULOSE 20 GM/30 ML UDC (FOR ORAL USE ONLY) PO SCH ×3 (06:37→22:10)
[2023-02-09] MEDS: cloNIDine HCL 0.1 MG TABLET PO PRN (07:10)
[2023-02-09] MEDS: levETIRAcetam 250 MG TABLET PO SCH ×2 (11:21→21:51)
[2023-02-09] MEDS: TIOTROPIUM BROMIDE 2.5 MCG (SPIRIVA) RESPIMAT INHALER IH SCH (11:41)
[2023-02-09] MEDS: BUDESONIDE/FORMETEROL FUMARATE 80/4.5 mcg INHALER IH SCH ×2 (11:42→21:50)
[2023-02-09] MEDS: SERTRALINE HCL 50 MG TABLET (FP) PO SCH (11:43)
[2023-02-09] MEDS: ASPIRIN 81 MG CHEWABLE TABLETS PO SCH (11:43)
[2023-02-09] MEDS: PRENATAL VITAMINS W/ FOLIC ACID TABLET (FP) PO SCH (11:43)
[2023-02-09] MEDS: ALBUTEROL SO4 HFA INHALER IH PRN (21:50)
[2023-02-09] MEDS: MELATONIN 5 MG TABLETS PO SCH (21:51)
[2023-02-09] MEDS: LATANOPROST 0.005% OPHTH SOLN 2.5ML BOTTLE OS SCH (21:51)
[2023-02-09] MEDS: THIAMINE HCL 100 MG TABLET (FP) PO SCH (21:51)
[2023-02-09] MEDS: ATORVASTATIN CA 40 MG TABLET (FP) PO SCH (21:51)
[2023-02-10] MEDS: GABAPENTIN 100 MG CAPSULE PO SCH ×3 (06:48→21:40)
[2023-02-10] MEDS: hydrOXYzine PAMOATE 25 MG CAPSULE (FP) PO PRN (06:49)
[2023-02-10] MEDS: LACTULOSE 20 GM/30 ML UDC (FOR ORAL USE ONLY) PO SCH ×3 (06:52→21:39)
[2023-02-10] MEDS: TIOTROPIUM BROMIDE 2.5 MCG (SPIRIVA) RESPIMAT INHALER IH SCH (10:18)
[2023-02-10] MEDS: BUDESONIDE/FORMETEROL FUMARATE 80/4.5 mcg INHALER IH SCH ×2 (10:18→21:40)
[2023-02-10] MEDS: ASPIRIN 81 MG CHEWABLE TABLETS PO SCH (10:19)
[2023-02-10] MEDS: levETIRAcetam 250 MG TABLET PO SCH ×2 (10:19→21:39)
[2023-02-10] MEDS: PRENATAL VITAMINS W/ FOLIC ACID TABLET (FP) PO SCH (10:19)
[2023-02-10] MEDS: SERTRALINE HCL 50 MG TABLET (FP) PO SCH (10:19)
[2023-02-10 18:33] LABS: PH,URINE 7.5 (5.0-8.0); URINE APPEARANCE CLEAR; URINE BILIRUBIN NEGATIVE (NEGATIVE); URINE COLOR YELLOW; URINE GLUCOSE (UA) NEGATIVE (NEGATIVE); URINE KETONE NEGATIVE (NEGATIVE); URINE LEUK ESTERASE NEGATIVE (NEGATIVE); URINE NITRITE NEGATIVE (NEGATIVE); URINE PROTEIN NEGATIVE (NEGATIVE); URINE UROBILINOGEN 0.2 mg/dL (0.2-1.0)
[2023-02-10] MEDS: MELATONIN 5 MG TABLETS PO SCH (21:39)
[2023-02-10] MEDS: THIAMINE HCL 100 MG TABLET (FP) PO SCH (21:39)
[2023-02-10] MEDS: ATORVASTATIN CA 40 MG TABLET (FP) PO SCH (21:39)
[2023-02-10] MEDS: cloNIDine HCL 0.1 MG TABLET PO PRN (21:41)
[2023-02-10] MEDS: LATANOPROST 0.005% OPHTH SOLN 2.5ML BOTTLE OS SCH (21:43)
[2023-02-10] MEDS: ALBUTEROL SO4 HFA INHALER IH PRN (23:48)
[2023-02-11] MEDS: hydrOXYzine PAMOATE 25 MG CAPSULE (FP) PO PRN (01:34)
[2023-02-11] MEDS: LACTULOSE 20 GM/30 ML UDC (FOR ORAL USE ONLY) PO SCH ×3 (06:26→21:42)
[2023-02-11] MEDS: GABAPENTIN 100 MG CAPSULE PO SCH ×3 (06:26→21:40)
[2023-02-11] MEDS: SERTRALINE HCL 50 MG TABLET (FP) PO SCH (10:03)
[2023-02-11] MEDS: levETIRAcetam 250 MG TABLET PO SCH ×2 (10:03→21:41)
[2023-02-11] MEDS: ASPIRIN 81 MG CHEWABLE TABLETS PO SCH (10:03)
[2023-02-11] MEDS: TIOTROPIUM BROMIDE 2.5 MCG (SPIRIVA) RESPIMAT INHALER IH SCH (10:03)
[2023-02-11] MEDS: BUDESONIDE/FORMETEROL FUMARATE 80/4.5 mcg INHALER IH SCH ×2 (10:04→21:42)
[2023-02-11] MEDS: PRENATAL VITAMINS W/ FOLIC ACID TABLET (FP) PO SCH (10:04)
[2023-02-11] MEDS: MAG HYDROX/AL HYDROX/SIMETH 30 ML UNIT-DOSE CUP PO PRN (13:30)
[2023-02-11] MEDS: MELATONIN 5 MG TABLETS PO SCH (21:40)
[2023-02-11] MEDS: ATORVASTATIN CA 40 MG TABLET (FP) PO SCH (21:40)
[2023-02-11] MEDS: THIAMINE HCL 100 MG TABLET (FP) PO SCH (21:41)
[2023-02-11] MEDS: LATANOPROST 0.005% OPHTH SOLN 2.5ML BOTTLE OS SCH (21:43)
[2023-02-12] MEDS: GABAPENTIN 100 MG CAPSULE PO SCH ×3 (06:20→21:23)
[2023-02-12] MEDS: LACTULOSE 20 GM/30 ML UDC (FOR ORAL USE ONLY) PO SCH ×3 (06:20→21:24)
[2023-02-12] MEDS: PRENATAL VITAMINS W/ FOLIC ACID TABLET (FP) PO SCH (10:37)
[2023-02-12] MEDS: levETIRAcetam 250 MG TABLET PO SCH ×2 (10:37→21:22)
[2023-02-12] MEDS: ASPIRIN 81 MG CHEWABLE TABLETS PO SCH (10:38)
[2023-02-12] MEDS: BUDESONIDE/FORMETEROL FUMARATE 80/4.5 mcg INHALER IH SCH ×2 (10:38→21:21)
[2023-02-12] MEDS: TIOTROPIUM BROMIDE 2.5 MCG (SPIRIVA) RESPIMAT INHALER IH SCH (10:38)
[2023-02-12] MEDS: SERTRALINE HCL 50 MG TABLET (FP) PO SCH (10:38)
[2023-02-12] MEDS: MELATONIN 5 MG TABLETS PO SCH (21:22)
[2023-02-12] MEDS: ALBUTEROL SO4 HFA INHALER IH PRN (21:22)
[2023-02-12] MEDS: THIAMINE HCL 100 MG TABLET (FP) PO SCH (21:23)
[2023-02-12] MEDS: ATORVASTATIN CA 40 MG TABLET (FP) PO SCH (21:23)
[2023-02-12] MEDS: LATANOPROST 0.005% OPHTH SOLN 2.5ML BOTTLE OS SCH (21:25)
[2023-02-13] MEDS: GABAPENTIN 100 MG CAPSULE PO SCH ×3 (06:25→21:11)
[2023-02-13] MEDS: LACTULOSE 20 GM/30 ML UDC (FOR ORAL USE ONLY) PO SCH ×3 (06:25→21:11)
[2023-02-13] MEDS: ASPIRIN 81 MG CHEWABLE TABLETS PO SCH (10:05)
[2023-02-13] MEDS: PRENATAL VITAMINS W/ FOLIC ACID TABLET (FP) PO SCH (10:07)
[2023-02-13] MEDS: TIOTROPIUM BROMIDE 2.5 MCG (SPIRIVA) RESPIMAT INHALER IH SCH (10:07)
[2023-02-13] MEDS: BUDESONIDE/FORMETEROL FUMARATE 80/4.5 mcg INHALER IH SCH ×2 (10:07→21:10)
[2023-02-13] MEDS: levETIRAcetam 250 MG TABLET PO SCH ×2 (10:07→21:11)
[2023-02-13] MEDS: SERTRALINE HCL 50 MG TABLET (FP) PO SCH (10:08)
[2023-02-13] MEDS ORDERED: NICOTINE POLACRILEX 2 MG GUM BUC PRN (12:04)
[2023-02-13] MEDS: LATANOPROST 0.005% OPHTH SOLN 2.5ML BOTTLE OS SCH (21:10)
[2023-02-13] MEDS: THIAMINE HCL 100 MG TABLET (FP) PO SCH (21:11)
[2023-02-13] MEDS: ATORVASTATIN CA 40 MG TABLET (FP) PO SCH (21:11)
[2023-02-13] MEDS: hydrOXYzine PAMOATE 25 MG CAPSULE (FP) PO PRN (21:12)
[2023-02-13] MEDS: MELATONIN 5 MG TABLETS PO SCH (21:12)
[2023-02-14] MEDS: GABAPENTIN 100 MG CAPSULE PO SCH ×3 (06:53→21:16)
[2023-02-14] MEDS: LACTULOSE 20 GM/30 ML UDC (FOR ORAL USE ONLY) PO SCH ×3 (06:53→21:17)
[2023-02-14] MEDS: PRENATAL VITAMINS W/ FOLIC ACID TABLET (FP) PO SCH (10:55)
[2023-02-14] MEDS: SERTRALINE HCL 50 MG TABLET (FP) PO SCH (10:56)
[2023-02-14] MEDS: BUDESONIDE/FORMETEROL FUMARATE 80/4.5 mcg INHALER IH SCH ×2 (10:57→21:15)
[2023-02-14] MEDS: levETIRAcetam 250 MG TABLET PO SCH ×2 (10:59→21:16)
[2023-02-14] MEDS: TIOTROPIUM BROMIDE 2.5 MCG (SPIRIVA) RESPIMAT INHALER IH SCH (11:00)
[2023-02-14] MEDS: ASPIRIN 81 MG CHEWABLE TABLETS PO SCH (11:34)
[2023-02-14] MEDS: LATANOPROST 0.005% OPHTH SOLN 2.5ML BOTTLE OS SCH (21:16)
[2023-02-14] MEDS: ATORVASTATIN CA 40 MG TABLET (FP) PO SCH (21:16)
[2023-02-14] MEDS: THIAMINE HCL 100 MG TABLET (FP) PO SCH (21:16)
[2023-02-14] MEDS: MELATONIN 5 MG TABLETS PO SCH (21:17)
[2023-02-14] MEDS: hydrOXYzine PAMOATE 25 MG CAPSULE (FP) PO PRN (21:17)
[2023-02-15] MEDS: GABAPENTIN 100 MG CAPSULE PO SCH ×3 (06:33→21:43)
[2023-02-15] MEDS: LACTULOSE 20 GM/30 ML UDC (FOR ORAL USE ONLY) PO SCH ×3 (06:33→21:44)
[2023-02-15 07:33] VITALS: RESP 18
[2023-02-15] MEDS: TIOTROPIUM BROMIDE 2.5 MCG (SPIRIVA) RESPIMAT INHALER IH SCH (10:12)
[2023-02-15] MEDS: PRENATAL VITAMINS W/ FOLIC ACID TABLET (FP) PO SCH (10:12)
[2023-02-15] MEDS: BUDESONIDE/FORMETEROL FUMARATE 80/4.5 mcg INHALER IH SCH ×2 (10:12→21:44)
[2023-02-15] MEDS: SERTRALINE HCL 50 MG TABLET (FP) PO SCH (10:13)
[2023-02-15] MEDS: levETIRAcetam 250 MG TABLET PO SCH ×2 (10:13→21:43)
[2023-02-15] MEDS: ASPIRIN 81 MG CHEWABLE TABLETS PO SCH (10:13)
[2023-02-15] MEDS: ATORVASTATIN CA 40 MG TABLET (FP) PO SCH (21:42)
[2023-02-15] MEDS: THIAMINE HCL 100 MG TABLET (FP) PO SCH (21:43)
[2023-02-15] MEDS: MELATONIN 5 MG TABLETS PO SCH (21:43)
[2023-02-15] MEDS: LATANOPROST 0.005% OPHTH SOLN 2.5ML BOTTLE OS SCH (21:45)
[2023-02-15] MEDS: AMMONIUM LACTATE 12% LOTION 225 GM BOTTLE TP PRN (22:56)
[2023-02-16] MEDS: LACTULOSE 20 GM/30 ML UDC (FOR ORAL USE ONLY) PO SCH ×3 (06:15→21:30)
[2023-02-16] MEDS: GABAPENTIN 100 MG CAPSULE PO SCH ×3 (06:15→21:28)
[2023-02-16] MEDS: levETIRAcetam 250 MG TABLET PO SCH ×2 (10:24→21:28)
[2023-02-16] MEDS: SERTRALINE HCL 50 MG TABLET (FP) PO SCH (10:24)
[2023-02-16] MEDS: BUDESONIDE/FORMETEROL FUMARATE 80/4.5 mcg INHALER IH SCH ×2 (10:24→21:30)
[2023-02-16] MEDS: PRENATAL VITAMINS W/ FOLIC ACID TABLET (FP) PO SCH (10:24)
[2023-02-16] MEDS: ASPIRIN 81 MG CHEWABLE TABLETS PO SCH (10:24)
[2023-02-16] MEDS: TIOTROPIUM BROMIDE 2.5 MCG (SPIRIVA) RESPIMAT INHALER IH SCH (10:25)
[2023-02-16] MEDS: BENZOCAINE/MENTHOL (CHLORASEPTIC ) LOZENGE MM PRN (16:33)
[2023-02-16] MEDS: MAG HYDROX/AL HYDROX/SIMETH 30 ML UNIT-DOSE CUP PO PRN (18:24)
[2023-02-16] MEDS: THIAMINE HCL 100 MG TABLET (FP) PO SCH (21:29)
[2023-02-16] MEDS: MELATONIN 5 MG TABLETS PO SCH (21:29)
[2023-02-16] MEDS: ATORVASTATIN CA 40 MG TABLET (FP) PO SCH (21:29)
[2023-02-16] MEDS: LATANOPROST 0.005% OPHTH SOLN 2.5ML BOTTLE OS SCH (21:31)
[2023-02-17] MEDS: GABAPENTIN 100 MG CAPSULE PO SCH ×3 (06:11→21:22)
[2023-02-17] MEDS: LACTULOSE 20 GM/30 ML UDC (FOR ORAL USE ONLY) PO SCH ×3 (06:12→22:06)
[2023-02-17 06:32] VITALS: TEMP 97.6
[2023-02-17] MEDS: ASPIRIN 81 MG CHEWABLE TABLETS PO SCH (10:19)
[2023-02-17] MEDS: levETIRAcetam 250 MG TABLET PO SCH ×2 (10:19→21:22)
[2023-02-17] MEDS: TIOTROPIUM BROMIDE 2.5 MCG (SPIRIVA) RESPIMAT INHALER IH SCH (10:20)
[2023-02-17] MEDS: PRENATAL VITAMINS W/ FOLIC ACID TABLET (FP) PO SCH (10:20)
[2023-02-17] MEDS: BUDESONIDE/FORMETEROL FUMARATE 80/4.5 mcg INHALER IH SCH ×2 (10:20→21:21)
[2023-02-17] MEDS: SERTRALINE HCL 50 MG TABLET (FP) PO SCH (10:21)
[2023-02-17] MEDS: ATORVASTATIN CA 40 MG TABLET (FP) PO SCH (21:22)
[2023-02-17] MEDS: MELATONIN 5 MG TABLETS PO SCH (21:22)
[2023-02-17] MEDS: THIAMINE HCL 100 MG TABLET (FP) PO SCH (21:22)
[2023-02-17] MEDS: LATANOPROST 0.005% OPHTH SOLN 2.5ML BOTTLE OS SCH (21:23)
[2023-02-17] MEDS: hydrOXYzine PAMOATE 25 MG CAPSULE (FP) PO PRN (21:24)
[2023-02-18] MEDS: GABAPENTIN 100 MG CAPSULE PO SCH (06:26)
[2023-02-18] MEDS: LACTULOSE 20 GM/30 ML UDC (FOR ORAL USE ONLY) PO SCH (06:26)
[2023-02-18] MEDS: SERTRALINE HCL 50 MG TABLET (FP) PO SCH (09:02)
[2023-02-18] MEDS: PRENATAL VITAMINS W/ FOLIC ACID TABLET (FP) PO SCH (09:02)
[2023-02-18] MEDS: ASPIRIN 81 MG CHEWABLE TABLETS PO SCH (09:02)
[2023-02-18] MEDS: levETIRAcetam 250 MG TABLET PO SCH (09:02)
[2023-02-18] MEDS: TIOTROPIUM BROMIDE 2.5 MCG (SPIRIVA) RESPIMAT INHALER IH SCH (09:03)
[2023-02-18] MEDS: BUDESONIDE/FORMETEROL FUMARATE 80/4.5 mcg INHALER IH SCH (09:03)
[2023-02-18 09:11] VITALS: BP 125/64; PULSE 106
== END 2023-02-18 12:10 | disposition home or self-care (01) | DRG 895 ==
LOC: YASAS 11:51 → Y5N 15:52
PROVIDERS: ADMIT Allergy & Immunology; ATTEND Psychiatry & Neurology Pain Medicine
PROC: HZ42ZZZ Group Counseling for Substance Abuse Treatment, Cognitive-Behavioral (ICD-10-PCS; principal; 2023-02-06)
DX: F10.20 Alcohol dependence, uncomplicated (principal); Z68.1 Body mass index [BMI] 19.9 or less, adult; F17.210 Nicotine dependence, cigarettes, uncomplicated; F41.9 Anxiety disorder, unspecified; F32.9 Major depressive disorder, single episode, unspecified; E78.5 Hyperlipidemia, unspecified; I10 Essential (primary) hypertension; J43.9 Emphysema, unspecified; J45.20 Mild intermittent asthma, uncomplicated; G40.909 Epilepsy, unspecified, not intractable, without status epilepticus; R79.89 Other specified abnormal findings of blood chemistry; R63.4 Abnormal weight loss; Z85.118 Personal history of other malignant neoplasm of bronchus and lung; Z99.89 Dependence on other enabling machines and devices
CPT/HCPCS: 26055; 36415; 80053; 81003; 82140; 85027; 86780; 86803; 87811; C9803-CS; U0003; U0005